=== PATIENT | female | born 1985 | race Caucasian/White ===

== ENCOUNTER 2016-08-18 08:54 | Outpatient (CLI) | payer OTHER, MEDICAID | END 2016-08-18 08:55 | disposition critical access hospital (66) | DX: M54.2 Cervicalgia (principal); R07.1 Chest pain on breathing; V43.52XA Car driver injured in collision with other type car in traffic accident, initial encounter; Y92.413 State road as the place of occurrence of the external cause | CPT/HCPCS: A0425; A0429 ==

== ENCOUNTER 2016-08-18 09:04 | Emergency (ER) | payer OTHER, MEDICAID ==
[2016-08-18] MEDS ORDERED: ACETAMINOPHEN 325 MG TABLET PO STA (09:09)
[2016-08-18] MEDS ORDERED: ACETAMINOPHEN 325 MG TABLET PO ONE (09:14)
== END 2016-08-18 11:28 | disposition home or self-care (01) ==
DX: S20.219A Contusion of unspecified front wall of thorax, initial encounter (principal); V53.5XXA Driver of pick-up truck or van injured in collision with car, pick-up truck or van in traffic accident, initial encounter; Y92.488 Other paved roadways as the place of occurrence of the external cause; J45.909 Unspecified asthma, uncomplicated; E03.9 Hypothyroidism, unspecified; Z87.42 Personal history of other diseases of the female genital tract; Z97.5 Presence of (intrauterine) contraceptive device
CPT/HCPCS: 71020; 72050; 99283; A9270

== ENCOUNTER 2016-08-21 18:28 | Emergency (ER) | payer OTHER, MEDICAID ==
[2016-08-21] MEDS ORDERED: MORPHINE 10 MG/ML VIAL ONE (21:00)
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
[2016-08-21] MEDS: MORPHINE 2 MG/ML SYRINGE IM STA (21:10)
[2016-08-21] MEDS: MORPHINE 2 MG/ML SYRINGE IVP STA (21:25)
[2016-08-21 21:59] VITALS: BP 102/74
--- NOTE | 2016-08-21 22:11 | CT Preliminary Report ---
Exam: CT Chest W/O IMPRESSION: 1. No displaced rib fractures. 2. No pneumothorax or effusion. No acute pulmonary process. 3. Possible contusion in the anterior chest wall. Correlate clinically. 4. See separate CT of the thoracic spinal cord. [facility] SITE ID: [id number]
--- NOTE | 2016-08-21 22:14 | CT Preliminary Report ---
Exam: CT Thoracic Spine W/O IMPRESSION: 1. No paraspinal hematoma. No fracture. [facility] SITE ID: [id number]
[2016-08-21] MEDS ORDERED: HYDROcod/ACET 5/325 Prepack 6 PO STA (22:23)
[2016-08-21] MEDS ORDERED: HYDROcod/ACET 5/325 Prepack 6 PO ONE (22:26)
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
--- NOTE | 2016-09-16 13:19 | ED Physician Documentation ---
ED Addendum - Addendum Addendum: 09/16/16 13:18 Note that the CAT scan of her chest demonstrates soft tissue contusion to the right anterior chest wall corroborated by area of tenderness as documented by Dr. Dickson on previous evaluation consistent with chest wall soft tissue injury.
== END 2016-08-21 22:32 | disposition home or self-care (01) ==
LOC: ED 18:28
DX: S20.211A Contusion of right front wall of thorax, initial encounter (principal); M54.6 Pain in thoracic spine; V49.40XA Driver injured in collision with unspecified motor vehicles in traffic accident, initial encounter; Y92.488 Other paved roadways as the place of occurrence of the external cause; J45.909 Unspecified asthma, uncomplicated; E03.9 Hypothyroidism, unspecified; Z87.42 Personal history of other diseases of the female genital tract
CPT/HCPCS: 71250; 72128; 96372; 99282; 99283

== ENCOUNTER 2017-01-03 16:15 | Outpatient (CLI) | payer OTHER, MEDICAID ==
--- NOTE | 2017-01-04 09:24 | XRAY Report ---
THREE-VIEW LEFT ANKLE: 01/03/2017 CLINICAL INDICATION: Pain. FINDINGS: AP, lateral, oblique views of the left ankle demonstrate mild degenerative changes, with s mall plantar and posterior calcaneal spurs. There is no evidence of acute fracture or dislocation. Lateral greater than medial soft tissue swelling is present. IMPRESSION: DEGENERATIVE CHANGES AND SOFT TISSUE SWELLING. NO EVIDENCE OF ACUTE FRACTURE. JOB #: [id number] EXT JOB #:[id number]
== END 2017-01-03 16:16 | disposition home or self-care (01) ==
LOC: DI 16:15
PROVIDERS: ATTEND Nurse Practitioner Family
DX: M19.072 Primary osteoarthritis, left ankle and foot (principal)

== ENCOUNTER 2017-06-15 14:39 | Outpatient (CLI) | payer MEDICAID ==
[2017-06-15 15:47] LABS: THYROID STIMULATING HORMONE 2.4 uIU/mL (0.34-5.60)
[2017-06-15 15:50] LABS: FREE T4 (FREE THYROXINE) 1.03 ng/dL (0.58-1.64)
== END 2017-06-15 14:40 | disposition home or self-care (01) ==
LOC: LAB 14:39
PROVIDERS: ATTEND Nurse Practitioner Family
DX: E03.9 Hypothyroidism, unspecified (principal)
CPT/HCPCS: 36415; 84439; 84443

== ENCOUNTER 2018-01-28 14:28 | Emergency (ER) | payer MEDICAID ==
[2018-01-28] MEDS ORDERED: IPRATROPIUM/ALBUTEROL 3 ML NEB INH STA (15:39)
[2018-01-28] MEDS ORDERED: DEXAMETHASONE 10 MG/ML VIAL PO STA (15:39)
--- NOTE | 2018-01-28 15:42 | ED Physician Documentation ---
PD HPI URI - Stated complaint Stated Complaint: Chest Congestion - Chief complaint Chief Complaint: Resp - History obtained from History obtained from: Patient - History of Present Illness Timing - onset: How many days ago (4) Timing duration: Days (4) Timing details: Gradual onset, Still present Associated symptoms: Fever, Chills, Sweats, Nasal congestion, Sore throat, Dry cough, Chest pain, Dyspnea Improves by: Rest, Medication, MDI/nebulizer Similar symptoms before: Diagnosis (asthma) Recently seen: Not recently seen - Additional information Additional information: 32-year-old female has developed chest pressure about 4 days ago. She has persistent pressure on her chest and this does not vary with her breathing. She has used her inhaler which does seem to help somewhat with the pain. She is developed a cough this morning she has developed low-grade fever she has body aches and pains for the last 4 days. Review of Systems Constitutional: reports: Fever, Chills, Myalgias, Fatigue, Sweats Eyes: denies: Decreased vision Ears: denies: Ear pain Nose: reports: Rhinorrhea / runny nose, Congestion Throat: reports: Sore throat Cardiac: reports: Chest pain / pressure. denies: Palpitations, Pedal edema, Calf pain Respiratory: reports: Cough. 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 : None HEENT: None Psych: Depression, Anxiety Musculoskeletal: None Derm: None - Past Surgical History Past Surgical History: Yes - Present Medications Home Medications: Ambulatory Orders Medication Instructions Recorded Confirmed Levothyroxine Sodium [Synthroid] 200 mcg PO DAILY 10/13/13 08/18/16 Albuterol 1 inh IH Q6HR PRN 08/18/16 08/18/16 Azithromycin [Zithromax] 250 mg PO DAILY #6 tablet 01/28/18 Bupropion HCl [Wellbutrin Xl] 300 mg DAILY 01/28/18 01/28/18 Escitalopram Oxalate [Lexapro] 30 mg DAILY 01/28/18 01/28/18 Fexofenadine HCl [Destiny Allergy] 180 mg DAILY 09/10/18 09/10/18 predniSONE [Prednisone] 40 mg PO DAILY #10 tablet 01/28/18 - Allergies Allergies/Adverse Reactions: Allergies Allergy/AdvReac Type Severity Reaction Status Date / Time No Known Drug Allergies Allergy Verified 08/18/16 09:09 - Social History Does the pt smoke?: No Smoking Status: Never smoker Does the pt drink ETOH?: No Does the pt have substance abuse?: No - Immunizations Immunizations are current?: Yes PD ED PE NORMAL - Vitals Vital signs reviewed: Yes (hypertensive diastolic ) - General General: Alert and oriented X 3, No acute distress, Well developed/nourished - HEENT HEENT: Atraumatic, PERRL, EOMI, Other (The right TM is inflamed with distortion of the landmarks. The left is less involved. The pharynx is with 1+ cryptic tonsils with exudate on the right. ) - Neck Neck: Supple, no meningeal sign, No bony TTP - Cardiac Cardiac: RRR, No murmur - Respiratory Respiratory: No respiratory distress, Other (rhoncherous breath sounds bilaterally ) - Abdomen Abdomen: Soft, Non tender - Back Back: No CVA TTP, No spinal TTP - Derm Derm: Normal color, Warm and dry, No rash - Extremities Extremities: No deformity, No edema - Neuro Neuro: Alert and oriented X 3, nuclear medicine specialist 2-12 intact, No motor deficit, No sensory deficit, Normal speech Eye Opening: Spontaneous Motor: Obeys Commands Verbal: Oriented GCS Score: 15 - Psych Psych: Normal mood, Normal affect Results - Vitals Vitals: Vital Signs - 24 hr 01/28/18 01/28/18 01/28/18 14:32 15:53 16:23 Temperature 36.6 C Heart Rate 88 74 86 Respiratory 20 18 18 Rate Blood Pressure 114/96 H 124/74 O2 Saturation 97 100 Oxygen O2 Source Room air - EKG (time done) 1437 Rate: Rate (enter#) (88) Rhythm: NSR Ischemia: Normal ST segments Compare to prior EKG: Old EKG unavailable Computer interpretation: Agree with computer - Rads (name of study) 2 veiw chest Radiology: Prelim report reviewed PD MEDICAL DECISION MAKING - ED course Complexity details: reviewed old records, reviewed results, re-evaluated patient , considered differential, d/w patient ED course: 32-year-old female with history of asthma has developed a cough congestion and has anterior chest pain. She does have otitis on exam she has some rhonchorous breath sounds, no evidence of infiltrate on the chest x-ray. She is administered dexamethasone 10 mg orally and a DuoNeb treatment and we will place her on some antibiotic. She has improvement with the duoneb. - Sepsis Event Vital Signs: Vital Signs - 24 hr 01/28/18 01/28/18 01/28/18 14:32 15:53 16:23 Temperature 36.6 C Heart Rate 88 74 86 Respiratory 20 18 18 Rate Blood Pressure 114/96 H 124/74 O2 Saturation 97 100 Oxygen O2 Source Room air Departure - Departure Disposition: Home, Self Care Clinical Impression: Otitis media Qualifiers: Otitis media type: suppurative Chronicity: acute Laterality: right Recurrence: not specified as recurrent Spontaneous tympanic membrane rupture: without spontaneous rupture Qualified Code(s): H66.001 - Acute suppurative otitis media without spontaneous rupture of ear drum, right ear Asthma Qualifiers: Asthma severity: mild Asthma persistence: intermittent Asthma complication type : with acute exacerbation Qualified Code(s): J45.21 - Mild intermittent asthma with (acute) exacerbation Condition: Stable Instructions: ED Reactive Airway Disease, ED Otitis Media Acute Adult Follow-Up: Chasity Schaffer ARNP [Primary Care Provider] - Prescriptions: Azithromycin [Zithromax] 250 mg PO DAILY #6 tablet predniSONE [Prednisone] 40 mg PO DAILY #10 tablet Discharge Date/Time: 01/28/18 16:24
[2018-01-28] MEDS ORDERED: CHERRY SYRUP 10 ML UDC PO ONE (15:55)
--- NOTE | 2018-01-28 16:22 | XRAY Report ---
Reason: chest congestion x 1 week Procedure Date: 01/28/2018 Accession Number: [id number] / [id number] Procedure: XR - Chest 2 View X-Ray CPT Code: 44303 FULL RESULT: EXAM: CHEST RADIOGRAPHY. EXAM DATE: 01/28/2018 03:29 PM. CLINICAL HISTORY: History of asthma. Chest congestion, productive cough x1 week. COMPARISON: Chest 2 view PA/lateral 08/18/2016. TECHNIQUE: 2 views. FINDINGS: Lungs/Pleura: No focal opacities evident. No pleural effusion. No pneumothorax. Normal volumes. Mediastinum: Heart and mediastinal contours are unremarkable. Other: None. IMPRESSION: Normal 2-view chest radiography. [facility]
[2018-01-28 16:24] VITALS: BP 124/74
== END 2018-01-28 16:24 | disposition home or self-care (01) ==
LOC: ED 14:28
DX: H66.001 Acute suppurative otitis media without spontaneous rupture of ear drum, right ear (principal); J45.21 Mild intermittent asthma with (acute) exacerbation; E03.9 Hypothyroidism, unspecified
CPT/HCPCS: 71046; 93005; 94640; 94664; 99283; A9270

== ENCOUNTER 2018-03-15 09:20 | Emergency (ER) | payer MEDICAID ==
[2018-03-15 09:48] LABS: BILIRUBIN,URINE NEGATIVE (NEGATIVE); GLUCOSE, URINE (UA) NEGATIVE (NEGATIVE); KETONES,URINE (UA) NEGATIVE (NEGATIVE); LEUKOCYTE ESTERASE, URINE NEGATIVE (NEGATIVE); NITRITE,URINE NEGATIVE (NEGATIVE); OCCULT BLOOD,URINE TRACE-LYSE (NEGATIVE); PH,URINE 7.5 PH (5.0-7.5); PROTEIN,URINE NEGATIVE (NEGATIVE); UROBILINOGEN,URINE 0.2 (NORMAL) E.U./dL (NORMAL)
[2018-03-15 09:49] LABS: CLARITY,URINE CLEAR (CLEAR)
--- NOTE | 2018-03-15 09:51 | ED Physician Documentation ---
PD HPI FEMALE - Stated complaint Stated Complaint: SPOTTING/5WKS - Chief complaint Chief Complaint: General - History obtained from History obtained from: Patient - History of Present Illness Timing - onset: Today Associated symptoms: Vaginal bleeding Contributing factors: (5 weeks gestation.) Similar symptoms before: Has not had sx before - Additional information Additional information: The patient is a 32-year-old female, currently at 5 weeks gestation, who presents with right sided cramping pain and vaginal spotting that started this morning. She reports nausea without vomiting. She denies fever or dysuria. She denies history of similar symptoms in the past. Review of Systems Constitutional: denies: Fever Nose: denies: Congestion Cardiac: denies: Chest pain / pressure Respiratory: denies: Dyspnea, Cough GI: reports: Nausea. denies: Abdominal Pain, Vomiting : reports: LMP (5 weeks ago.), Vaginal bleeding (spotting). 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 : None HEENT: None Psych: Depression, Anxiety Musculoskeletal: None Derm: None - Past Surgical History Past Surgical History: Yes - Present Medications Home Medications: Ambulatory Orders Medication Instructions Recorded Confirmed Bupropion HCl [Wellbutrin Xl] 300 mg DAILY 01/28/18 01/28/18 Escitalopram Oxalate [Lexapro] 30 mg DAILY 01/28/18 01/28/18 Levothyroxine Sodium [Synthroid] 200 mcg PO 03/15/18 - Allergies Allergies/Adverse Reactions: Allergies Allergy/AdvReac Type Severity Reaction Status Date / Time No Known Drug Allergies Allergy Verified 03/15/18 09:52 - Social History Does the pt smoke?: No Smoking Status: Never smoker Does the pt drink ETOH?: No Does the pt have substance abuse?: No - Immunizations Immunizations are current?: Yes - POLST Patient has POLST: No PD ED PE NORMAL - Vitals Vital signs reviewed: Yes (normal) - General General: Alert and oriented X 3, Well developed/nourished, Other (overweight) - HEENT HEENT: Atraumatic, Pharynx benign - Neck Neck: No adenopathy, No JVD - Cardiac Cardiac: RRR, No murmur - Respiratory Respiratory: No respiratory distress, Clear bilaterally - Abdomen Abdomen: Normal bowel sounds, Soft, Non tender - Back Back: No CVA TTP - Derm Derm: No rash - Extremities Extremities: No edema, No calf tenderness / cord - Neuro Neuro: Alert and oriented X 3, No motor deficit, Normal speech Results - Vitals Vitals: Vital Signs - 24 hr 03/15/18 09:28 Temperature 36.4 C L Heart Rate 77 Respiratory 20 Rate Blood Pressure 119/77 O2 Saturation 99 Oxygen O2 Source Room air - Labs Labs: Laboratory Tests 03/15/18 03/15/18 09:40 09:53 HCG, Quant < 0.60 Urine Color YELLOW Urine Clarity CLEAR Urine pH 7.5 Ur Specific [place] 1.010 Urine Protein NEGATIVE Urine Glucose (UA) NEGATIVE Urine Ketones NEGATIVE Urine Occult Blood TRACE-LYSE Urine Nitrite NEGATIVE Urine Bilirubin NEGATIVE Urine Urobilinogen 0.2 (NORMAL) Ur Leukocyte Esterase NEGATIVE Ur Microscopic Review NOT INDICATED Urine Culture Comments NOT INDICATED PD MEDICAL DECISION MAKING - ED course Complexity details: reviewed results, re-evaluated patient, considered differential, d/w patient ED course: The patient's presentation is most consistent with menstrual bleeding. A serum hCG is negative, so this is unlikely to be a miscarriage or ectopic . Pelvic ultrasound is not clinically indicated at this time. I discussed with the patient the diagnosis, outpatient follow-up, as well as potentially worrisome signs or symptoms that should prompt reevaluation in the emergency department. Departure - Departure Disposition: 01 Home, Self Care Clinical Impression: Menstrual cramps Condition: Stable Instructions: ED Cramping Menstrual Follow-Up: Chasity Schaffer ARNP [Primary Care Provider] - Comments: Drink plenty of fluids. You can use Tylenol every 4-6 hours if needed for cramping pain. You could also use ibuprofen if needed. Follow-up with your primary physician or return to the emergency department if you develop increasing pain, increasing bleeding, or otherwise worsening symptoms.
[2018-03-15 10:53] VITALS: BP 107/73
== END 2018-03-15 10:56 | disposition home or self-care (01) ==
LOC: ED 09:20
DX: O26.891 Other specified pregnancy related conditions, first trimester (principal); Z3A.01 Less than 8 weeks gestation of pregnancy; R25.2 Cramp and spasm; E03.9 Hypothyroidism, unspecified
CPT/HCPCS: 81001; 81003; 81025; 84702; 87086; 87491; 87591; 99282; 99283

== ENCOUNTER 2018-05-24 08:00 | Outpatient (CLI) | payer MEDICAID | END 2018-05-24 23:59 | disposition home or self-care (01) | LOC: LAB.R 08:00 | PROVIDERS: ATTEND Physician Assistant Medical | DX: J02.9 Acute pharyngitis, unspecified (principal) | CPT/HCPCS: 87070; 87077 ==

== ENCOUNTER 2018-07-05 09:03 | Outpatient (CLI) | payer MEDICAID ==
[2018-07-05 10:52] LABS: BASOPHILS # (AUTO) 0.1 10^3/uL (0.0-0.1); BASOPHILS % (AUTO) 1.8 %; EOSINOPHILS # (AUTO) 0.2 10^3/uL (0.0-0.7); EOSINOPHILS % (AUTO) 2.7 %; HGB - HEMOGLOBIN 14.2 g/dL (12.0-16.0); LYMPHOCYTES # (AUTO) 1.5 10^3/uL (1.5-3.5); MEAN CORPUSCULAR HEMOGLOBIN 28.9 pg (27.0-31.0); MEAN CORPUSCULAR HGB CONC 36.1 g/dL (32.0-36.0); MEAN CORPUSCULAR VOLUME 80.1 fL (81.0-99.0); MEAN PLATELET VOLUME 8.7 fL (7.9-10.8); MONOCYTES # (AUTO) 0.4 10^3/uL (0.0-1.0); MONOCYTES % (AUTO) 6.8 %; NEUTROPHILS # (AUTO) 3.5 10^3/uL (1.5-6.6); NEUTROPHILS % (AUTO) 61.7 %; PLT - PLATELET COUNT 235 10^3/uL (130-450); RED BLOOD COUNT 4.92 10^6/uL (4.20-5.40); RED CELL DISTRIBUTION WIDTH 13.7 % (12.0-15.0); WHITE BLOOD COUNT 5.7 x10^3/uL (4.8-10.8)
[2018-07-05 11:16] LABS: RHEUMATOID FACTOR NEGATIVE (Negative)
[2018-07-05 11:27] LABS: ALBUMIN/GLOBULIN RATIO 1.2 (1.0-2.2); ALKALINE PHOSPHATASE 51 IU/L (42-121); ALT ALANINE AMINOTRANSFERASE 57 IU/L (10-60); AST ASPARTATE AMINOTRANSFERASE 35 IU/L (10-42); BILIRUBIN,TOTAL 0.7 mg/dL (0.2-1.0); BUN - BLOOD UREA NITROGEN 17 mg/dL (6-20); CARBON DIOXIDE - CO2 27 mmol/L (21-32); CHLORIDE 102 mmol/L (101-111); CREATININE 0.7 mg/dL (0.4-1.0); GFR - MDRD 96 (>89); GLUCOSE 91 mg/dL (70-100); SODIUM 138 mmol/L (135-145); TOTAL PROTEIN 7.3 g/dL (6.7-8.2)
[2018-07-05 11:35] LABS: CRP - C-REACTIVE PROTEIN < 1.0 mg/dL (0-1.0)
== END 2018-07-05 09:04 | disposition home or self-care (01) ==
LOC: LAB.F 09:03
PROVIDERS: ATTEND Nurse Practitioner Family
DX: M25.50 Pain in unspecified joint (principal)
CPT/HCPCS: 36415; 80053; 85025; 85651; 86038; 86140; 86430

== ENCOUNTER 2018-08-23 07:46 | Outpatient (CLI) | payer MEDICAID ==
[2018-08-23 08:21] LABS: CHOL/HDL RATIO 5.1 (<4.4); CHOLESTEROL 203 mg/dL; HDL CHOLESTEROL 40 mg/dL; LDL CHOLESTEROL,CALCULATED 144 mg/dL; LDL/HDL RATIO 3.6 (<4.4); VLDL CHOLESTEROL 19 mg/dL
[2018-08-23 08:36] LABS: HB2 TOTAL 15.3 g/dL; HEMOGLOBIN A1C 0.51 g/dL; HEMOGLOBIN A1C % 5.2 % (4.6-6.2)
[2018-08-23 09:15] LABS: THYROID STIMULATING HORMONE 20.99 uIU/mL (0.34-5.60)
[2018-08-23 09:17] LABS: FREE T4 (FREE THYROXINE) 0.61 ng/dL (0.58-1.64)
== END 2018-08-23 07:47 | disposition home or self-care (01) ==
LOC: LAB 07:46
PROVIDERS: ATTEND Obstetrics & Gynecology
DX: E03.9 Hypothyroidism, unspecified (principal); Z13.220 Encounter for screening for lipoid disorders; Z13.1 Encounter for screening for diabetes mellitus; Z11.51 Encounter for screening for human papillomavirus (HPV)
CPT/HCPCS: 80061; 83036; 83721; 84439; 84443

== ENCOUNTER 2018-08-30 22:04 | Outpatient (CLI) | payer MEDICAID ==
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
== END 2018-08-30 22:05 | disposition home or self-care (01) ==
LOC: DI 22:04
PROVIDERS: ATTEND Obstetrics & Gynecology
DX: N91.1 Secondary amenorrhea (principal)
CPT/HCPCS: 76830; 76856

== ENCOUNTER 2018-10-15 09:40 | Outpatient (CLI) | payer MEDICAID ==
[2018-10-15 10:51] LABS: CHOL/HDL RATIO 5.4 (<4.4); CHOLESTEROL 188 mg/dL; HDL CHOLESTEROL 35 mg/dL; LDL CHOLESTEROL,CALCULATED 128 mg/dL; LDL/HDL RATIO 3.7 (<4.4); VLDL CHOLESTEROL 25 mg/dL
== END 2018-10-15 09:41 | disposition home or self-care (01) ==
LOC: LAB 09:40
PROVIDERS: ATTEND Nurse Practitioner Family
DX: E78.5 Hyperlipidemia, unspecified (principal); E06.3 Autoimmune thyroiditis; Z13.71 Encounter for nonprocreative screening for genetic disease carrier status; Z11.59 Encounter for screening for other viral diseases
CPT/HCPCS: 36415; 80061; 81220; 81243; 81329; 81599; 83721; 84443; 86762; 86787

== ENCOUNTER 2018-10-23 09:13 | Outpatient (CLI) | payer MEDICAID | END 2018-10-23 09:14 | disposition home or self-care (01) | LOC: NS 09:13 | PROVIDERS: ATTEND Obstetrics & Gynecology | DX: E66.9 Obesity, unspecified (principal); Z71.3 Dietary counseling and surveillance; Z68.41 Body mass index [BMI] 40.0-44.9, adult | CPT/HCPCS: 97802 ==

== ENCOUNTER 2019-01-10 07:46 | Outpatient (CLI) | payer MEDICAID ==
[2019-01-10 10:11] LABS: PROLACTIN 8.98 ng/mL
[2019-01-10 10:34] LABS: FOLLICLE STIMULATING HORMONE 6.4 mIU/mL
[2019-01-10 10:35] LABS: LUTEINIZING HORMONE 10.17 mIU/mL
== END 2019-01-10 07:47 | disposition home or self-care (01) ==
LOC: LAB 07:46
PROVIDERS: ATTEND Obstetrics & Gynecology
DX: N91.1 Secondary amenorrhea (principal)
CPT/HCPCS: 36415; 81599; 82627; 83001; 83002; 83498; 84146; 84270; 84402; 84403

== ENCOUNTER 2019-02-11 12:52 | Emergency (ER) | payer MEDICAID ==
[2019-02-11] MEDS ORDERED: BUPIVACAINE 0.5%-EPI 1:200000 PF 10 ML VIAL SUBQ STA (13:33)
--- NOTE | 2019-02-11 13:35 | ED Physician Documentation ---
PD HPI LOWER EXT INJURY - Stated complaint Stated Complaint: ANKLE PX - Chief complaint Chief Complaint: Ext Problem - History obtained from History obtained from: Patient - History of Present Illness PD HPI LOW EXT INJURY LOCATION: Right (Without specific injury she developed medial right foot pain today that has per been progressive and now she is not able to walk. No history of similar issues. No fever. 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 : None HEENT: None Psych: Depression, Anxiety Musculoskeletal: None Derm: None - Past Surgical History Past Surgical History: Yes - Present Medications Home Medications: Ambulatory Orders Medication Instructions Recorded Confirmed Bupropion HCl [Wellbutrin Xl] 300 mg DAILY 01/28/18 01/28/18 Escitalopram Oxalate [Lexapro] 30 mg DAILY 01/28/18 01/28/18 Levothyroxine Sodium [Synthroid] 200 mcg PO 03/15/18 Meloxicam [Mobic] 7.5 mg PO BID PRN #20 tablet 02/11/19 - Allergies Allergies/Adverse Reactions: Allergies Allergy/AdvReac Type Severity Reaction Status Date / Time No Known Drug Allergies Allergy Verified 02/11/19 13:00 - Social History Does the pt smoke?: No Smoking Status: Never smoker Does the pt drink ETOH?: No Does the pt have substance abuse?: No - Immunizations Immunizations are current?: Yes - POLST Patient has POLST: No PD ED PE NORMAL - Vitals Vital signs reviewed: Yes - General General: Alert and oriented X 3, No acute distress - Extremities Extremities: Other (She is focally tender over the medial proximal foot, specifically the tenderness matches the distribution of the posterior tibial t endon. She is not too tender over the plantar fascia over the insertion of that on the calcaneus. She has severe pain with palpation to the posterior tibial tendon and with eversion of the foot. No warmth or redness.) - Neuro Neuro: Alert and oriented X 3, Normal speech Results - Vitals Vitals: Vital Signs - 24 hr 02/11/19 12:59 Temperature 36.5 C Heart Rate 78 Respiratory 18 Rate Blood Pressure 118/69 O2 Saturation 98 Oxygen O2 Source Room air - Rads (name of study) R foot 3v Radiology: EMP read contemporaneously (normal) PD MEDICAL DECISION MAKING - ED course ED course: 33-year-old woman with clinical right foot tendinitis. X-rays negative. She had excellent pain relief with 5 mL of 0.5% Marcaine with epinephrine injected into the local area. Departure - Departure Disposition: 01 Home, Self Care Clinical Impression: Tendinitis of right foot Condition: Good Record reviewed to determine appropriate education?: Yes Instructions: Tendonitis and Tenosynovitis Prescriptions: Meloxicam [Mobic] 7.5 mg PO BID PRN #20 tablet PRN Reason: Pain Comments: Return for new or worsening symptoms. Follow-up with your doctor in a week if not better. You can wear the boot as needed for comfort but do not need to wear it in bed or while bathing etc.
--- NOTE | 2019-02-11 14:08 | XRAY Report ---
Reason: foot pain Procedure Date: 02/11/2019 Accession Number: [id number] / [id number] Procedure: XR - Foot 3 View RT CPT Code: FULL RESULT: EXAM: RIGHT FOOT RADIOGRAPHY EXAM DATE: 02/11/2019 01:51 PM. CLINICAL HISTORY: Foot pain. COMPARISON: None. TECHNIQUE: 3 views. FINDINGS: Bones: No acute fracture. No suspicious osseous lesion. Small corticated body adjacent to the tip of the medial malleolus, likely sequela of old trauma. Plantar and posterior calcaneal spurs. Joints: No significant joint space narrowing. No dislocation. Other: None. IMPRESSION: No acute osseous abnormality. RADIA
[2019-02-11 14:16] VITALS: BP 126/80
== END 2019-02-11 14:23 | disposition home or self-care (01) ==
LOC: ED 12:52
DX: M77.51 Other enthesopathy of right foot and ankle (principal)
CPT/HCPCS: 99283

== ENCOUNTER 2019-05-10 21:42 | Emergency (ER) | payer MEDICAID ==
[2019-05-10] MEDS ORDERED: SODIUM CHLORIDE 0.9% 1,000 ML IV STA (22:01)
[2019-05-10] MEDS ORDERED: ONDANSETRON 4 MG/2 ML VIAL IVP STA (22:01)
[2019-05-10 22:23] LABS: BASOPHILS % (AUTO) 0.3 %; EOSINOPHILS % (AUTO) 0.5 %; HGB - HEMOGLOBIN 14.2 g/dL (12.0-16.0); LYMPHOCYTES # (AUTO) 0.8 10^3/uL (1.5-3.5); MEAN CORPUSCULAR HGB CONC 34.3 g/dL (32.0-36.0); MEAN CORPUSCULAR VOLUME 81.5 fL (81.0-99.0); MEAN PLATELET VOLUME 10.4 fL (7.9-10.8); MONOCYTES # (AUTO) 0.4 10^3/uL (0.0-1.0); MONOCYTES % (AUTO) 5.3 %; NEUTROPHILS # (AUTO) 5.4 10^3/uL (1.5-6.6); NEUTROPHILS % (AUTO) 81.4 %; PLT - PLATELET COUNT 250 10^3/uL (130-450); RED BLOOD COUNT 5.08 10^6/uL (4.20-5.40); RED CELL DISTRIBUTION WIDTH 12.7 % (12.0-15.0); WHITE BLOOD COUNT 6.6 x10^3/uL (4.8-10.8)
[2019-05-10] MEDS ORDERED: ACETAMINOPHEN 1,000 MG/100 ML 100 ML IV STA (22:33)
[2019-05-10 22:35] LABS: ALBUMIN/GLOBULIN RATIO 1.3 (1.0-2.2); BILIRUBIN,TOTAL 0.9 mg/dL (0.2-1.0); CALCIUM 8.3 mg/dL (8.5-10.3); CREATININE 0.8 mg/dL (0.4-1.0)
[2019-05-10] MEDS ORDERED: METOCLOPRAMIDE 10 MG/2 ML VIAL IVP STA (22:51)
--- NOTE | 2019-05-10 22:52 | ED Physician Documentation ---
History of Present Illness - Stated complaint Stated Complaint: N/V - Chief complaint Chief Complaint: Abd Pain - Additonal information Additional information: This is a 34-year-old female with history of anxiety and depression who presents with nausea and vomiting. Patient states that her symptoms began this morning with several episodes of vomiting, this has Persisted throughout the day, she is unable to hold down much of substance. She has some generalized crampy and migratory abdominal discomfort which is currently mild to moderate in severity. She denies any dysuria or flank pain. No fever, no diarrhea. She had a normal bowel movement this morning. 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 : None HEENT: None Psych: Depression, Anxiety Musculoskeletal: None Derm: None - Past Surgical History Past Surgical History: Yes - Present Medications Home Medications: Ambulatory Orders Medication Instructions Recorded Confirmed Levothyroxine Sodium [Synthroid] 200 mcg PO DAILY 03/15/18 05/10/19 Alprazolam [Xanax] 1 mg PO DAILY PRN 05/10/19 05/10/19 Citalopram Hydrobromide 10 mg PO DAILY 05/10/19 05/10/19 [Citalopram HBr] Fexofenadine HCl [Destiny Allergy] 180 mg PO DAILY PRN 05/10/19 05/10/19 Fluticasone [Flonase] 1 spray NS DAILY PRN 05/10/19 05/10/19 Metoclopramide [Reglan] 10 mg PO Q8H PRN #7 tablet 05/10/19 Sumatriptan Succinate [Imitrex] 100 mg PO DAILY PRN 05/10/19 05/10/19 - Allergies Allergies/Adverse Reactions: Allergies Allergy/AdvReac Type Severity Reaction Status Date / Time No Known Drug Allergies Allergy Verified 05/10/19 21:49 - Social History Does the pt smoke?: No Smoking Status: Never smoker Does the pt drink ETOH?: No Does the pt have substance abuse?: No - Immunizations Immunizations are current?: Yes - POLST Patient has POLST: No PD ED PE NORMAL - Vitals Vital signs reviewed: Yes - General General: Alert and oriented X 3, No acute distress - HEENT HEENT: PERRL - Neck Neck: Supple, no meningeal sign - Cardiac Cardiac: RRR, No murmur - Respiratory Respiratory: Clear bilaterally - Abdomen Abdomen: Soft, Other (Abdomen is rotund, there is no tenderness to deep palpation in all 4 quadrants) - Derm Derm: Warm and dry - Extremities Extremities: No deformity - Neuro Neuro: Alert and oriented X 3 - Psych Psych: Normal mood, Normal affect Results - Vitals Vitals: Vital Signs - 24 hr 05/10/19 05/10/19 05/10/19 21:46 22:58 23:18 Temperature 36.8 C Heart Rate 100 80 76 Respiratory 18 16 16 Rate Blood Pressure 128/77 131/75 H 133/80 H O2 Saturation 97 95 97 05/10/19 23:52 Temperature 37.2 C Heart Rate 73 Respiratory 16 Rate Blood Pressure 145/92 H O2 Saturation 97 Oxygen O2 Source Room air - Labs Labs: Laboratory Tests 05/10/19 05/10/19 05/10/19 22:14 22:14 23:25 WBC 6.6 RBC 5.08 Hgb 14.2 Hct 41.4 MCV 81.5 MCH 28.0 MCHC 34.3 RDW 12.7 Plt Count 250 MPV 10.4 Neut # (Auto) 5.4 Lymph # (Auto) 0.8 L Forest # (Auto) 0.4 Eos # (Auto) 0.0 Baso # (Auto) 0.0 Absolute Nucleated RBC 0.00 Nucleated RBC % 0.0 Sodium 138 Potassium 3.2 L Chloride 104 Carbon Dioxide 23 Anion Gap 11.0 BUN 13 Creatinine 0.8 Estimated GFR (MDRD) 82 L Glucose 112 H Calcium 8.3 L Total Bilirubin 0.9 AST 41 ALT 55 Alkaline Phosphatase 59 Total Protein 7.0 Albumin 4.0 Globulin 3.0 Albumin/Globulin Ratio 1.3 Lipase 32 Urine Color YELLOW Urine Clarity CLEAR Urine pH 6.0 Ur Specific Addison 1.020 Urine Protein NEGATIVE Urine Glucose (UA) NEGATIVE Urine Ketones 15 H Urine Occult Blood TRACE-INTA Urine Nitrite NEGATIVE Urine Bilirubin NEGATIVE Urine Urobilinogen 0.2 (NORMAL) Ur Leukocyte Esterase NEGATIVE Ur Microscopic Review NOT INDICATED Urine Culture Comments NOT INDICATED Urine HCG, Qual 05/10/19 23:25 WBC RBC Hgb Hct MCV MCH MCHC RDW Plt Count MPV Neut # (Auto) Lymph # (Auto) Forest # (Auto) Eos # (Auto) Baso # (Auto) Absolute Nucleated RBC Nucleated RBC % Sodium Potassium Chloride Carbon Dioxide Anion Gap BUN Creatinine Estimated GFR (MDRD) Glucose Calcium Total Bilirubin AST ALT Alkaline Phosphatase Total Protein Albumin Globulin Albumin/Globulin Ratio Lipase Urine Color Urine Clarity Urine pH Ur Specific Addison 1.020 Urine Protein Urine Glucose (UA) Urine Ketones Urine Occult Blood Urine Nitrite Urine Bilirubin Urine Urobilinogen Ur Leukocyte Esterase Ur Microscopic Review Urine Culture Comments Urine HCG, Qual NEGATIVE PD MEDICAL DECISION MAKING - ED course Complexity details: considered differential (Gastroenteritis, UTI, pancreatitis, enteritis, biliary colic, pyelonephritis) ED course: On examination patient is nontoxic-appearing, and her vital signs are unremarkable on my examination, she is afebrile. She has a very benign abdomen with no tenderness to deep outpatient all 4 quadrants. Labs are drawn and kartik wilder was given antiemetics. Her blood counts are unremarkable with no leukocytosis, her abdominal panel does show a slight hypokalemia, but is otherwise unremarkable. Her lipase is normal. Her urine is negative for infection and her hCG is also negative. After fluids and antiemetics I reevaluated the patient, she is feeling much better and she is eager to go home. Her abdomen remains benign on my repeat examination, and her vital signs are within normal limits. She has no pelvic symptoms, no lower abdominal pain. I discussed with patient that if she has new or worsening abdominal pain, pa rticularly pain that settles in one area of her abdomen such as the right lower right upper quadrant, or any other concerning symptoms she should return to the emergency department for recheck in the next 24 hours. It is possible that this is an early gastroenteritis but the fact that she has not had diarrhea makes this diagnosis more unclear. I discussed strict return precautions and PCP follow-up and patient was discharged home in accordance with her wishes. Departure - Departure Disposition: Home, Self Care Clinical Impression: Vomiting Qualifiers: Vomiting type: unspecified Vomiting Intractability: non-intractable Nausea presence: with nausea Qualified Code(s): R11.2 - Nausea with vomiting, unspecified Condition: Good Follow-Up: Esdras Horowitz MD [Primary Care Provider] - As Needed (With any persistent symptoms) Prescriptions: Metoclopramide [Reglan] 10 mg PO Q8H PRN #7 tablet PRN Reason: Nausea / Vomiting Comments: You were seen today for vomiting and abdominal discomfort. Your labs are reassuring at this time, your potassium is a bit low, please eat potassium rich foods over the next several days. If you are developing worsening or not improving abdominal pain, or other concerning symptoms, particularly pain that settles to one area of the abdomen such as the right upper or right lower abdomen, return to the emergency department for recheck in the next day. Discharge Date/Time: 05/11/19 00:07
[2019-05-10] MEDS ORDERED: LACTATED RINGERS 1,000 ML IV STA (22:53)
[2019-05-10 23:33] LABS: BILIRUBIN,URINE NEGATIVE (NEGATIVE); GLUCOSE, URINE (UA) NEGATIVE (NEGATIVE); KETONES,URINE (UA) 15 mg/dL (NEGATIVE); LEUKOCYTE ESTERASE, URINE NEGATIVE (NEGATIVE); NITRITE,URINE NEGATIVE (NEGATIVE); OCCULT BLOOD,URINE TRACE-INTA (NEGATIVE); PROTEIN,URINE NEGATIVE (NEGATIVE); UROBILINOGEN,URINE 0.2 (NORMAL) E.U./dL (NORMAL)
[2019-05-10 23:35] LABS: CLARITY,URINE CLEAR (CLEAR); HCG UR QUAL NEGATIVE
[2019-05-10 23:53] VITALS: BP 145/92
== END 2019-05-11 00:07 | disposition home or self-care (01) ==
LOC: ED 21:42
DX: R11.2 Nausea with vomiting, unspecified (principal); E87.6 Hypokalemia
CPT/HCPCS: 36415; 80053; 81003; 81025; 83690; 85025; 96361; 96365; 96375; 99284; J0131; J2765; J7120; 81001; 87086

== ENCOUNTER 2019-07-18 10:55 | Outpatient (CLI) | payer MEDICAID | END 2019-07-18 23:59 | disposition home or self-care (01) | LOC: LAB.R 10:55 | PROVIDERS: ATTEND Nurse Practitioner | DX: J02.9 Acute pharyngitis, unspecified (principal) | CPT/HCPCS: 87070 ==

== ENCOUNTER 2019-12-05 16:13 | Emergency (ER) | payer MEDICAID ==
[2019-12-05] MEDS ORDERED: LIDOCAINE TOPICAL 4% 50 ML BOTTLE MM STA (18:37)
[2019-12-05] MEDS ORDERED: BUTALB/ACETAM/CAFF 50/325/40MG TABLET PO STA (18:37)
--- NOTE | 2019-12-05 19:56 | ED Physician Documentation ---
PD HPI HEADACHE - Stated complaint Stated Complaint: HEADACHE - Chief complaint Chief Complaint: General - History obtained from History obtained from: Patient - History of Present Illness Timing - onset: How many days ago (3) Timing - onset during: Rest Timing - duration: Days (3) Timing - details: Gradual onset Pain level max: 9 Pain level now: 9 Location: Global Quality: Throbbing, Aching, Other (She states that this headache was "very gradual in onset") Associated symptoms: Nausea, Other (Photophobia). No: Fever, Stiff neck, Vomiting, Weakness, Numbness, Syncope Improved by: Rest, Dark room Worsened by: Light, Noise Similar symptoms before: Diagnosis (Migraine headaches) Recently seen: Clinic (Received an injection of Toradol in the clinic yesterday) - Additional information Additional information: Has not taken anything for the headache today Review of Systems Constitutional: denies: Fever, Chills Cardiac: denies: Chest pain / pressure Respiratory: denies: Cough GI: denies: Vomiting, Diarrhea Skin: denies: Rash Musculoskeletal: denies: Neck pain, Back pain Neurologic: denies: Focal weakness, Numbness, Confused, Altered mental status, Head injury, LOC PD PAST MEDICAL HISTORY - Past Medical History Cardiovascular: None Respiratory: Asthma, Other Neuro: Headaches, Migraines Endocrine/Autoimmune: HyPOthyroidism GI: 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 HEENT: None Psych: Depression, Anxiety Musculoskeletal: None Derm: None - Past Surgical History Past Surgical History: Yes - Present Medications Home Medications: Ambulatory Orders Medication Instructions Recorded Confirmed Levothyroxine Sodium [Synthroid] 200 mcg PO DAILY 03/15/18 05/10/19 Alprazolam [Xanax] 1 mg PO DAILY PRN 05/10/19 05/10/19 Citalopram Hydrobromide 10 mg PO DAILY 05/10/19 05/10/19 [Citalopram HBr] Fexofenadine HCl [Destiny Allergy] 180 mg PO DAILY PRN 05/10/19 05/10/19 Fluticasone [Flonase] 1 spray NS DAILY PRN 05/10/19 05/10/19 Metoclopramide [Reglan] 10 mg PO Q8H PRN #7 tablet 05/10/19 Sumatriptan Succinate [Imitrex] 100 mg PO DAILY PRN 05/10/19 05/10/19 Butalb/Acetaminophen/Caffeine 1 cap PO Q6H PRN #10 capsule 12/05/19 [Fioricet 50-300-40 mg Capsule] Sumatriptan [Imitrex] 20 mg NS DAILY PRN #5 spray 12/05/19 - Allergies Allergies/Adverse Reactions: Allergies Allergy/AdvReac Type Severity Reaction Status Date / Time No Known Drug Allergies Allergy Verified 12/05/19 16:19 - Social History Does the pt smoke?: No Smoking Status: Never smoker Does the pt drink ETOH?: No Does the pt have substance abuse?: No - Immunizations Immunizations are current?: Yes - POLST Patient has POLST: No PD ED PE NORMAL - Vitals Vital signs reviewed: Yes - General General: Alert and oriented X 3, No acute distress, Well developed/nourished - HEENT HEENT: Atraumatic, PERRL, Moist mucous membranes - Neck Neck: Supple, no meningeal sign - Cardiac Cardiac: RRR, Strong equal pulses - Respiratory Respiratory: No respiratory distress, Clear bilaterally - Abdomen Abdomen: Soft, Non tender, Non distended - Derm Derm: Warm and dry - Extremities Extremities: No edema, No calf tenderness / cord - Neuro Neuro: Alert and oriented X 3, foot orthopedist 2-12 intact, No motor deficit, No sensory deficit, Normal speech Eye Opening: Spontaneous Motor: Obeys Commands Verbal: Oriented GCS Score: 15 - Psych Psych: Normal mood, Normal affect Results - Vitals Vitals: Vital Signs - 24 hr 12/05/19 12/05/19 16:19 20:01 Temperature 36.6 C 36.7 C Heart Rate 86 66 Respiratory 16 18 Rate Blood Pressure 124/73 126/72 O2 Saturation 97 96 Oxygen O2 Source Room air PD MEDICAL DECISION MAKING - ED course Complexity details: re-evaluated patient, considered differential, d/w patient ED course: 34-year-old female with a migraine headache. Feels better after Fioricet and a 4% transnasal sphenopalatine ganglion block. Headache down to approximately a 3-4 out of 10. Minimal photophobia. She states that she would like to try going home at this point. Will prescribe Fioricet and intranasal Imitrex for home. Patient denies any possibility of . Patient counseled regarding signs and symptoms for which I believe and urgent re-evaluation would be necessary. Patient with good understanding of and agreement to plan and is comfortable going home at this time This document was made in part using voice recognition software. While efforts are made to proofread this document, sound alike and grammatical errors may occur. No subarachnoid hemorrhage. No aneurysm. No tumor. Departure - Departure Disposition: 01 Home, Self Care Clinical Impression: Migraine headache Qualifiers: Migraine type: unspecified Status migrainosus presence: without status migrainosus Intractability: not intractable Qualified Code(s): G43.909 - Migraine, unspecified, not intractable, without status migrainosus Condition: Good Instructions: ED Headache Migraine Follow-Up: Esdras Horowitz MD [Primary Care Provider] - Within 1 week Prescriptions: Butalb/Acetaminophen/Caffeine [Fioricet 50-300-40 mg Capsule] 1 cap PO Q6H PRN #10 capsule PRN Reason: headache Sumatriptan [Imitrex] 20 mg NS DAILY PRN #5 spray PRN Reason: migraine Comments: Return if you worsen. Drink plenty of fluids and rest. Discharge Date/Time: 12/05/19 20:16
[2019-12-05 20:02] VITALS: BP 126/72
== END 2019-12-05 20:16 | disposition home or self-care (01) ==
LOC: ED 16:13
DX: G43.909 Migraine, unspecified, not intractable, without status migrainosus (principal)
CPT/HCPCS: 99282; 99284; A9270

== ENCOUNTER 2019-12-13 17:25 | Emergency (ER) | payer MEDICAID ==
[2019-12-13] MEDS ORDERED: diphenhydrAMINE INJ 50 MG/ML VIAL IVP STA (17:47)
[2019-12-13] MEDS ORDERED: SODIUM CHLORIDE 0.9% 1,000 ML IV STA (17:47)
[2019-12-13] MEDS ORDERED: METOCLOPRAMIDE 10 MG/2 ML VIAL IVP STA (17:47)
--- NOTE | 2019-12-13 17:49 | ED Physician Documentation ---
PD HPI HEADACHE - Stated complaint Stated Complaint: HEADACHE/NAUSEA/VOMITTING - Chief complaint Chief Complaint: Neuro - History obtained from History obtained from: Patient - Additional information Additional information: 34-year-old woman with chronic migraine headaches, usually only about once a month and usually resolve with Imitrex at home. She said the current headache for about 10 days. Is waxing and waning but fairly constant and associated with a visual aura. She is been nauseous and vomiting but has not vomited today. No possibility of . She saw her primary care physician who gave her shot of toradol which was unhelpful, subsequently went to another ED where she received intranasal lidocaine and Fioricet which was fleetingly helpful. The headache is different than her usual headaches, her usual headaches are in one spot, this 1 kind of rolls around. There is no associated neck stiffness or fever though. 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 : None HEENT: None Psych: Depression, Anxiety Musculoskeletal: None Derm: None - Past Surgical History Past Surgical History: Yes - Present Medications Home Medications: Ambulatory Orders Medication Instructions Recorded Confirmed Levothyroxine Sodium [Synthroid] 200 mcg PO DAILY 03/15/18 05/10/19 Fexofenadine HCl [Destiny Allergy] 180 mg PO DAILY PRN 05/10/19 05/10/19 Fluticasone [Flonase] 1 spray NS DAILY PRN 05/10/19 05/10/19 Sumatriptan Succinate [Imitrex] 100 mg PO DAILY PRN 05/10/19 05/10/19 Butalb/Acetaminophen/Caffeine 1 cap PO Q6H PRN #10 capsule 12/05/19 [Fioricet 50-300-40 mg Capsule] Sumatriptan [Imitrex] 20 mg NS DAILY PRN #5 spray 12/05/19 Bupropion HCl [Wellbutrin Xl] 300 mg PO 12/13/19 Fluoxetine HCl [Prozac] 20 mg PO 12/13/19 cloNIDine [Catapres] 0.1 mg PO DAILY PM 12/13/19 12/13/19 - Allergies Allergies/Adverse Reactions: Allergies Allergy/AdvReac Type Severity Reaction Status Date / Time No Known Drug Allergies Allergy Verified 12/13/19 17:33 - Social History Does the pt smoke?: No Smoking Status: Never smoker Does the pt drink ETOH?: No Does the pt have substance abuse?: No - Immunizations Immunizations are current?: Yes - POLST Patient has POLST: No PD ED PE NORMAL - Vitals Vital signs reviewed: Yes - General General: Alert and oriented X 3, Other (Appears uncomfortable and photophobic) - HEENT HEENT: PERRL, EOMI - Neck Neck: Supple, no meningeal sign, No bony TTP - Neuro Neuro: Alert and oriented X 3, 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 She was very anxious with that and did request a CT of the head which given the length of time she has had it is not unreasonable and it was negative. She did not feel any better after Reglan and Benadryl. Got mild relief with Haldol and Ativan and requested discharge. Departure - Departure Disposition: 01 Home, Self Care Clinical Impression: Migraine Qualifiers: Migraine type: with aura Status migrainosus presence: with status migrainosus Intractability: intractable Qualified Code(s): G43.111 - Migraine with aura, intractable, with status migrainosus Condition: Good Record reviewed to determine appropriate education?: Yes Instructions: ED Headache Migraine Comments: Call your doctor to arrange a follow-up appointment, make the next available appointment. In the interim, return anytime if worse or if new symptoms develop. Discharge Date/Time: 12/13/19 19:18
--- NOTE | 2019-12-13 18:21 | CT Report ---
PROCEDURE: HEAD WO INDICATIONS: Headaches TECHNIQUE: Noncontrast 4.5 mm thick angled axial sections acquired from the foramen magnum to the vertex. For r adiation dose reduction, the following was used: automated exposure control, adjustment of mA and/or kV according to patient size. COMPARISON: None. FINDINGS: Image quality: Excellent. CSF spaces: Basal cisterns are patent. No extra-axial fluid collections. Ventricles are normal in size and shape. Brain: No midline shift. No intracranial masses or hemorrhage. Carlton-white matter interface is norm al. Skull and face: Calvarium and visualized facial bones are intact, without suspicious lesions. Sinuses: Visualized sinuses and mastoids are clear. IMPRESSION: No acute intracranial abnormality. Reviewed by: Chaka Kevin MD on 12/13/2019 6:19 PM PDT Approved by: Chaka Kevin MD on 12/13/2019 6:19 PM PDT Station ID: [id number]
[2019-12-13] MEDS ORDERED: HALOPERIDOL 5 MG/ML VIAL IVP ONE (18:36)
[2019-12-13] MEDS ORDERED: LORazepam 2 MG/ML VIAL IVP STA (18:36)
[2019-12-13 19:22] VITALS: BP 109/66
== END 2019-12-13 19:18 | disposition home or self-care (01) ==
LOC: ED 17:25
DX: G43.111 Migraine with aura, intractable, with status migrainosus (principal); F41.9 Anxiety disorder, unspecified
CPT/HCPCS: 70450; 96361; 96374; 96375; 99283; 99285; J1200; J2060; J2765

== ENCOUNTER 2020-06-14 08:00 | Outpatient (CLI) | payer MEDICAID ==
--- NOTE | 2020-06-14 12:13 | XRAY Report ---
PROCEDURE: Chest 2 View X-Ray INDICATIONS: CHEST PAIN ON BREATHING TECHNIQUE: 2 view(s) of the chest. COMPARISON: Chest radiograph dated 01/28/2018. FINDINGS: Surgical changes and devices: None. Lungs and pleura: No pleural effusions or pneumothorax. Increased bronchovascular markings in bilate ral hilar region are seen with mild bronchial wall thickening. Ill-defined increased opacity in right lower lung field. Mediastinum: Mediastinal contours are normal. Heart size is normal. Bones and chest wall: No suspicious bony abnormalities. Soft tissues appear unremarkable. IMPRESSION: Finding is suggestive of reactive airway disease such as bronchitis. Cannot rule out dev eloping small right lower lobe infiltrate. No pleural effusion or pneumothorax. Reviewed by: Mauro Oliver MD on 06/14/2020 12:12 PM PST Approved by: Mauro Oliver MD on 06/14/2020 12:12 PM PST Station ID: [id number]
--- NOTE | 2020-06-14 12:13 | XRAY Report ---
PROCEDURE: Ribs 2 View LT INDICATIONS: CHEST PAIN ON BREATHING TECHNIQUE: 2 views of the left ribs were acquired. COMPARISON: None FINDINGS: Surgical changes and devices: None. Bones and chest wall: No fractures or dislocations. No suspicious bony lesions. Overlying soft tis sues appear unremarkable. Lungs and pleura: The visualized lung appears clear. No pleural effusions or pneumothorax are visib le. IMPRESSION: No definite displaced left rib fracture is seen. Visualized left lung field is clear. Reviewed by: Mauro Oliver MD on 06/14/2020 12:12 PM PST Approved by: Mauro Oliver MD on 06/14/2020 12:12 PM PST Station ID: [id number]
== END 2020-06-14 23:59 | disposition home or self-care (01) ==
LOC: DI.S 08:00
PROVIDERS: ATTEND Physician Assistant Medical
DX: R91.8 Other nonspecific abnormal finding of lung field (principal)

== ENCOUNTER 2020-06-30 08:00 | Outpatient (CLI) | payer MEDICAID ==
[2020-06-30 13:36] LABS: BASOPHILS # (AUTO) 0.1 10^3/uL (0.0-0.1); BASOPHILS % (AUTO) 0.7 %; EOSINOPHILS # (AUTO) 0.1 10^3/uL (0.0-0.7); EOSINOPHILS % (AUTO) 0.9 %; HGB - HEMOGLOBIN 13.8 g/dL (12.0-16.0); LYMPHOCYTES % (AUTO) 27.2 %; MEAN CORPUSCULAR HEMOGLOBIN 27.7 pg (27.0-31.0); MEAN CORPUSCULAR HGB CONC 32.4 g/dL (32.0-36.0); MEAN CORPUSCULAR VOLUME 85.4 fL (81.0-99.0); MEAN PLATELET VOLUME 10.6 fL (7.9-10.8); MONOCYTES # (AUTO) 0.5 10^3/uL (0.0-1.0); MONOCYTES % (AUTO) 4.5 %; NEUTROPHILS # (AUTO) 7.2 10^3/uL (1.5-6.6); NEUTROPHILS % (AUTO) 66.1 %; PLT - PLATELET COUNT 315 10^3/uL (130-450); RED BLOOD COUNT 4.99 10^6/uL (4.20-5.40); RED CELL DISTRIBUTION WIDTH 13.4 % (12.0-15.0); WHITE BLOOD COUNT 10.9 x10^3/uL (4.8-10.8)
[2020-06-30 13:54] LABS: FREE T3 1.89 pg/mL (2.5-3.9)
[2020-06-30 13:55] LABS: THYROID STIMULATING HORMONE 8.84 uIU/mL (0.34-5.60)
[2020-06-30 13:57] LABS: FREE T4 (FREE THYROXINE) 0.78 ng/dL (0.58-1.64)
[2020-06-30 14:12] LABS: ALBUMIN 3.8 g/dL (3.2-5.5); ALBUMIN/GLOBULIN RATIO 1.5 (1.0-2.2); ALKALINE PHOSPHATASE 43 IU/L (42-121); ALT ALANINE AMINOTRANSFERASE 30 IU/L (10-60); AST ASPARTATE AMINOTRANSFERASE 19 IU/L (10-42); BILIRUBIN,TOTAL 0.5 mg/dL (0.2-1.0); BUN - BLOOD UREA NITROGEN 15 mg/dL (6-20); CALCIUM 8.9 mg/dL (8.5-10.3); CARBON DIOXIDE - CO2 26 mmol/L (21-32); CHLORIDE 102 mmol/L (101-111); CHOLESTEROL 223 mg/dL; CREATININE 0.9 mg/dL (0.4-1.0); GLUCOSE 91 mg/dL (70-100); HDL CHOLESTEROL 56 mg/dL; LDL CHOLESTEROL,CALCULATED 149 mg/dL; LDL/HDL RATIO 2.7 (<4.4); TOTAL PROTEIN 6.3 g/dL (6.7-8.2); VLDL CHOLESTEROL 18 mg/dL
== END 2020-06-30 23:59 | disposition home or self-care (01) ==
LOC: LAB.WCP 08:00
PROVIDERS: ATTEND Family Medicine
DX: E66.01 Morbid (severe) obesity due to excess calories (principal); R06.83 Snoring; E03.9 Hypothyroidism, unspecified; R73.01 Impaired fasting glucose; F41.9 Anxiety disorder, unspecified
CPT/HCPCS: 36415; 80053; 80061; 83036; 83721; 84439; 84443; 84481; 85025

== ENCOUNTER 2020-07-15 08:30 | Outpatient (CLI) | payer MEDICAID ==
[2020-07-15 09:15] VITALS: BP 110/72
--- NOTE | 2020-07-15 09:15 | SLEEP CARE CONSULTATION ---
Information from patient questionnaire entered by Seema Morejon. I have reviewed and concur with the information entered by Seema Morejon. This document represents the service I personally performed and the decisions made by me, Komal Perez ARNP. History of Present Illness Service Date and Time: 07/15/2020 0830 Reason for Visit: New patient Chief Complaint: reports: Unrefreshed sleep, Snoring, Excessive daytime sleepiness, Observed pauses in breathing, Fatigue Date of Onset: April 2020 Usual bedtime: 10 pm Time it takes to fall asleep: 15 minutes or less Snores at night: Yes Observed to quit breathing while asleep: Yes Sleeps alone due to snoring: Yes (sometimes) Number of times waking at night: 1-2 Reasons for waking at night: reports: Snoring, Bathroom, Other (nightmare) Toss, Turn, or Twitch while sleeping: Yes Recalls having dreams: Yes Usually gets out of bed at: 6:30 am Feels refreshed in the morning: No Morning headache: Yes (once a week, migraines too) Sleepy or fatigued during the day: Yes Ever fallen asleep while driving: No Takes day naps: Yes () Dreams during day naps: Yes Prior sleep studies: No Additional HPI information: I had the pleasure of seeing REID MORALEZ today regarding the possibility of her having a sleep disorder. Her current complaints are snoring, observed pauses in breathing, unrefreshed sleep and fatigue. She has been snoring for a while and is usually always tired. Her told her that she has been stopping breathing during the night since April. Both of her parents have sleep apnea, mother treated and father not treated. She decided to seek evaluation to take care of [facility]. She has a history of hypothyroidism, anxiety, depression and asthma. She states she is on blood pressure medication but this is prescribed by her psychiatrist for her anxiety/depression. - Parasomnia Symptoms Ever been unable to move upon waking from sleep: No Walks in sleep: No Talks in sleep: Yes Ever acted out dreams in sleep: No Ever felt weak in the knees when startled or emotional: Yes (not fallen to ground) Bothered by creepy, crawly, restless sensations in legs: Yes (evening mostly) Problems with memory or concentration: Yes (both, random times) Subjective Initial [place] Sleepiness Scale score: 14 (in 2020) Past Medical History Past Medical History: reports: Hypothyroidism, Anxiety, Asthma, Depression. 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 Patient is and lives in [place]. Have you smoked in the past 12 months: No Alcohol use: No Caffeine use: No Family History Family history of sleep disordered breathing: Yes (mom and dad) Family Hx Sleep Apnea: Mother: Sleep apnea - Treated, Father: Sleep apnea - Untreated Allergies and Home Medications Drug allergies reviewed: Yes (NKDA) Home medication list reviewed: Yes Allergy and home medication list: Vitamin D3 1000 iu Wellbutrin 300 mg Levothyroxine 200 mcg Fluticasone 50 mcg Levocetirizine 5 mg Fluoxetine HC 40 mg Clonidine HCL 0.1 mg Albuterol inhaler, prn Sumatriptan 100 mg, prn Mirena IUD Review of Systems Cardiovascular: denies: high blood pressure Gastrointestinal: denies: heartburn Neurological: reports: headaches, head trauma (when 11 years old cut open head, no concussion) Psychiatric: reports: anxiety, depression Ear/Nose/Throat: reports: nasal congestion, wisdom teeth removed. denies: injury to nose, tonsillectomy Endocrine: reports: thyroid disease, sluggishness Musculoskeletal: reports: joint pain Immunologic: reports: sneezing, rash, itching, allergies to food or environment (eucalyptus, seasonal) Physical Exam Blood Pressure: 110/72 Cuff size: wrist Heart Rate: 101 O2 Saturation: 98 Height: 5 ft 7 in Weight: 262 lb Body Mass Index: 41.0 BMI Classification: Morbidly Obese Neck circumference: 16 (inches) Nostrils: patent to airflow Mouth and throat: narrow oropharynx Soft palate: long Uvula visualization: 100% Mallampati Class I Tongue: normal in size Tonsils: 1+ Heart: regular rate and rhythm Lungs: clear bilaterally Impression and Plan 1. Suspected Obstructive Sleep Apnea-Hypopnea Syndrome, as suggested by a history of loud and irregular snoring, observed cessation of breath while asleep, morning headache, unrefreshed sleep, cognitive impairment, and excessive daytime sleepiness. Narrow oropharynx and obesity are common predisposing factors for obstructive sleep apnea-hypopnea syndrome. I recommend proceeding to polysomnography to confirm the diagnosis and to assess severity. If the patient has significant sleep disordered breathing, a manual CPAP titration study will also be performed to find the optimal treatment pressure. I informed the patient of what the sleep studies involve and after some discussion, obtained agreement to proceed. The pathophysiology of obstructive sleep apnea-hypopnea syndrome was discussed with the patient and health risks of cardiovascular and cerebrovascular disease if not treated. AAS brochure for obstructive sleep apnea-hypopnea syndrome given and reviewed. Risks of drowsy driving discussed in detail and patient advised to avoid long distance driving and to green chain puller at the first sign of drowsiness. Patient agreed to plan. * Schedule polysomnography +- manual CPAP titration study and return in 1-2 weeks after the study to discuss result and initiate therapy. * Avoid long distance driving or driving when feeling sleepy. * Avoid sedative and muscle relaxant around bedtime. * Attempt to lose weight. * Review instructions provided by trained office staff on how to prepare for the sleep study. * Return for follow-up after sleep study completed. Counseling Topics: Weight loss health impact Visit Type: In Office Time Spent with Patient (minutes): 31 Provider Statement: I spent 100% of the Face to Face Visit with the patient with greater than 50% spent counseling the patient and coordination of care.
== END 2020-07-15 08:31 | disposition home or self-care (01) ==
LOC: SC 08:30
PROVIDERS: ATTEND Nurse Practitioner Family
DX: G47.10 Hypersomnia, unspecified (principal); R41.89 Other symptoms and signs involving cognitive functions and awareness; G47.8 Other sleep disorders; R51.9 Headache, unspecified; R06.83 Snoring; R06.81 Apnea, not elsewhere classified; E66.01 Morbid (severe) obesity due to excess calories; Z68.41 Body mass index [BMI] 40.0-44.9, adult
CPT/HCPCS: 99203; 99212

== ENCOUNTER 2020-08-06 08:32 | Emergency (ER) | payer MEDICAID ==
[2020-08-06] MEDS ORDERED: DEXAMETHASONE 10 MG/ML VIAL PO STA (09:15)
[2020-08-06] MEDS ORDERED: CHERRY SYRUP 10 ML UDC PO ONE (09:15)
--- NOTE | 2020-08-06 09:18 | ED Physician Documentation ---
PD HPI DYSPNEA - Stated complaint Stated Complaint: SOA - Chief complaint Chief Complaint: Resp - History obtained from History obtained from: Patient - History of Present Illness Timing - onset: Today Timing - onset during: Rest Timing - duration: Hours Timing - details: Gradual onset, Still present Inciting event(s): URI Improved by: Inhaler/neb Worsened by: Exertion, Coughing Associated symptoms: Cough, Wheezing. No: Fever, Hemoptysis, Bilateral edema, Unilateral edema Similar symptoms before: Diagnosis (asthma) Recently seen: Not recently seen - Additional information Additional information: 35-year-old female with a history of mild intermittent asthma has developed symptoms of asthma again with wheezing and this morning she discovered that she did not have any puffs left in her inhaler that in 2018. She has not had to use her inhaler for several years. She has developed a cough productive of some sputum she denies any sore throat or ear pain she was treated for infection in May of this year when she fell and struck her ribs and had an x-ray done. She was asymptomatic at that time. She remembers taking antibiotic for 10 days. Review of Systems Constitutional: denies: Fever, Chills, Myalgias Eyes: denies: Decreased vision Nose: reports: Congestion. denies: Rhinorrhea / runny nose Throat: denies: Sore throat Cardiac: denies: Chest pain / pressure, Palpitations Respiratory: reports: Dyspnea, Cough, Wheezing GI: denies: Abdominal Pain, Nausea, Vomiting : denies: Dysuria, Frequency PD PAST MEDICAL HISTORY - Past Medical History Past Medical History: Yes Cardiovascular: None Respiratory: Asthma, Other Neuro: Headaches, Migraines Endocrine/Autoimmune: HyPOthyroidism GI: None QUALITY REVIEWER: Ovarian cysts : None HEENT: None Psych: Depression, Anxiety Musculoskeletal: None Derm: None - Past Surgical History Past Surgical History: Yes - Present Medications Home Medications: Ambulatory Orders Medication Instructions Recorded Confirmed Albuterol Sulf [Ventolin Hfa 1 - 2 puffs INH Q4HR PRN #1 inhaler 08/06/20 Inhaler] Albuterol Sulfate [Proair Hfa 2 puffs 08/06/20 Inhaler] Azithromycin [Zithromax] 250 mg PO DAILY #6 tablet 08/06/20 - Allergies Allergies/Adverse Reactions: Allergies Allergy/AdvReac Type Severity Reaction Status Date / Time Lactobacillus acidophilus AdvReac Unknown Verified 08/06/20 08:43 [From Acidophilus] - Social History Does the pt smoke?: No Smoking Status: Never smoker Does the pt drink ETOH?: No Does the pt have substance abuse?: No - Immunizations Immunizations are current?: Yes - POLST Patient has POLST: No PD ED PE NORMAL - Vitals Vital signs reviewed: Yes (Normal) - General General: Alert and oriented X 3, No acute distress, Well developed/nourished - HEENT HEENT: Atraumatic, PERRL, EOMI, Ears normal, Moist mucous membranes, Pharynx benign, Dentition benign - Neck Neck: Supple, no meningeal sign, No bony TTP - Cardiac Cardiac: RRR, No murmur - Respiratory Respiratory: No respiratory distress, Other (Diminished breath sounds with mild rhonchi in the right base) - Abdomen Abdomen: Soft, Non tender - Back Back: No CVA TTP, No spinal TTP - Derm Derm: Normal color, Warm and dry, No rash - Extremities Extremities: No deformity, No edema - Neuro Neuro: Alert and oriented X 3, manager presentation 2-12 intact, No motor deficit, No sensory deficit, Normal speech Eye Opening: Spontaneous Motor: Obeys Commands Verbal: Oriented GCS Score: 15 - Psych Psych: Normal mood, Normal affect Results - Vitals Vitals: Vital Signs - 24 hr 08/06/20 08:34 Temperature 36 C L Heart Rate 84 Respiratory 18 Rate Blood Pressure 108/68 O2 Saturation 98 Oxygen O2 Source Room air - Rads (name of study) chest Radiology: Prelim report reviewed (Impression: Question of right lower lobe airspace opacity. However, this appears similar to prior chest x-ray dating back to 2018 and may represent atelectasis or scarring.), EMP read indepedently, See rad report PD MEDICAL DECISION MAKING - ED course Complexity details: reviewed old records, reviewed results, re-evaluated patient, considered differential, d/w patient ED course: 35-year-old female with mild intermittent asthma does have some rhonchi on exam she has some subtle findings on chest x-ray we will place her back onto antibiotic and I have given her a dose of dexamethasone in the emergency department she is not currently wheezing and we will prescribe albuterol. Departure - Departure Disposition: 01 Home, Self Care Clinical Impression: Asthmatic bronchitis with acute exacerbation Qualifiers: Asthma severity: mild Asthma persistence: intermittent Qualified Code(s): J45.21 - Mild intermittent asthma with (acute) exacerbation Condition: Stable Instructions: ED Bronchitis Asthmatic Follow-Up: Esdras Horowitz MD [Primary Care Provider] - Prescriptions: Albuterol Sulf [Ventolin Hfa Inhaler] 1 - 2 puffs INH Q4HR PRN #1 inhaler PRN Reason: Shortness Of Air/Wheezing Azithromycin [Zithromax] 250 mg PO DAILY #6 tablet
--- NOTE | 2020-08-06 09:22 | XRAY Report ---
PROCEDURE: Chest 2 View X-Ray INDICATIONS: shortness of breath TECHNIQUE: 2 view(s) of the chest. COMPARISON: CXR 06/14/2020, 01/28/2018. FINDINGS: Surgical changes and devices: None. Lungs and pleura: No pleural effusions or pneumothorax. Question of airspace opacity in the right lo wer lobe. However, this appears similar the prior exams. Mediastinum: Mediastinal contours are normal. Heart size is normal. Bones and chest wall: No suspicious bony abnormalities. Soft tissues appear unremarkable. IMPRESSION: Question of right lower lobe airspace opacity. However, this appears similar to the prior CXR dating back to 2018 and may represent atelectasis or s carring. Reviewed by: Chaka Kevin MD on 08/06/2020 8:20 AM BABAK Approved by: Chaka Kevin MD on 08/06/2020 8:20 AM BABAK Station ID: [id number]
[2020-08-06 09:32] VITALS: BP 118/70
== END 2020-08-06 09:30 | disposition home or self-care (01) ==
LOC: ED 08:32
DX: J45.21 Mild intermittent asthma with (acute) exacerbation (principal)
CPT/HCPCS: 71046; 99283; 99284; A9270

== ENCOUNTER 2020-08-20 08:46 | Outpatient (CLI) | payer MEDICAID ==
--- OUTSIDE RECORDS SUMMARY | 2020-08-25 01:37 | EXTERNAL MEDICAL SUMMARY RPT | Continuity of Care Document ---
:1985 Demographics Phone Unavailable Preferred Language Unknown Marital Status Unknown Episcopal Affiliation Unknown Race Unknown Ethnic Group Unknown Author Organization [facility] Address [address] [place] [address] Phone Social History date description facility [phone]
== END 2020-08-20 08:47 | disposition home or self-care (01) ==
LOC: SC 08:46
PROVIDERS: ATTEND Nurse Practitioner Family
DX: G47.10 Hypersomnia, unspecified (principal); R06.81 Apnea, not elsewhere classified; R06.83 Snoring; R51.9 Headache, unspecified; R41.89 Other symptoms and signs involving cognitive functions and awareness; E66.01 Morbid (severe) obesity due to excess calories; Z68.41 Body mass index [BMI] 40.0-44.9, adult
CPT/HCPCS: 95806

== ENCOUNTER 2020-10-04 08:00 | Outpatient (CLI) | payer MEDICAID ==
[2020-10-04 12:45] LABS: THYROID STIMULATING HORMONE < 0.08 uIU/mL (0.34-5.60)
[2020-10-04 12:47] LABS: FREE T3 3.97 pg/mL (2.5-3.9)
== END 2020-10-04 23:59 | disposition home or self-care (01) ==
LOC: LAB.WCP 08:00
PROVIDERS: ATTEND Family Medicine
DX: E06.3 Autoimmune thyroiditis (principal)
CPT/HCPCS: 36415; 84439; 84443; 84481

== ENCOUNTER 2020-10-15 07:27 | Outpatient (CLI) | payer MEDICAID ==
--- NOTE | 2020-10-15 08:11 | SLEEP CARE CONSULTATION ---
Information from patient questionnaire entered by Seema Morejon. I have reviewed and concur with the information entered by Seema Morejon. This document represents the service I personally performed and the decisions made by , Komal Perez ARNP. History of Present Illness Service Date and Time: 10/15/2020726 Initial [place] Sleepiness Scale score: 14 (in 2020) Current [place] Sleepiness Scale score: 10 Additional HPI information: REID MORALEZ returns for follow up and results of the recently performed home sleep study. The patient was informed of the following findings: no significant sleep disordered breathing with an average AHI of 3.6 and martin oxygen saturation of 89%. Her supine AHI was elevated at 9.2. I explained the pathophysiology behind obstructive sleep apnea. Patient does not have sleep apnea and was advised how weight gain could increase the risk of developing sleep apnea in the future. I strongly encouraged the patient to lose weight. Patient does not have significant sleep disordered breathing but has elevated AHI in supine position so advised positional therapy. Methods to achieve positional management therapy were discussed; such as, positioning with pillows, wearing a T-shirt with tennis balls sewn into the back, Rematee shirt, Zzomba belt and Slumberbump belt. Patient has moderate snoring. Snoring can be reduced by weight loss. Weight loss is best achieved with diet consult. Patient instructed to contact PCP for referral. Snoring can also be treated with an oral appliance from a dentist. Advised to check insurance coverage. In addition, an ENT evaluation can be do to see if other treatment is indicated. Patient does not drink alcohol. Patient was cautioned about risks of drowsy driving until sleepiness symptoms resolve. Sleep Study - Results Type of Sleep Study: Home sleep study Prior sleep studies: No Polysomnography/Home Sleep Study results: Physician Impression: The quality of the study is good. The length of the study is adequate (> 240 minutes). Please also see the tabulated and graphic data. 1. No significant sleep disordered breathing, with an AHI of 3.6/hr and martin SaO2 of 89%. During the study, the patient had 7 apneas (7 obstructive, 0 central, 0 mixed) and 14 hypopneas. The longest episode lasted 62.5 seconds. The few respiratory events occurred almost exclusively during supine sleep (supine AHI was 9.2 and non-supine, 1.22). 2. Hypoxemia (ICD-10 R09.02), minimal, with the lowest oxygen saturation of 89 % and 0.1 minutes with SaO2 under 90%. Baseline oxygen saturation was normal (Average oxygen saturation was 95%). Allergies and Home Medications Home medication list reviewed: Yes (Levothyroxine 175 mg (decreased)) Review of Systems Review of systems same as previous: Yes (no changes) Physical Exam Heart Rate: 80 O2 Saturation: 98 Height: 5 ft 7 in Weight: 265 lb Body Mass Index: 41.5 BMI Classification: Morbidly Obese Impression and Plan Snoring but no significant sleep disordered breathing. She did have an elevated supine AHI and was advised to avoid sleeping supine. Patient advised that often weight loss will reduce snoring as well as apnea risk. An oral appliance can also be used for snoring. This would require a dental consultation. Patient cautioned not to use other online appliances as can cause bite issues. A list of accredited dentists in [facility] and one local dentist who makes oral appliances is available in office. Patient is advised to check if insurance will cover. An ENT consult can also be helpful to determine if any other treatment is an option. Patient to follow up as needed if her symptoms change or worsen. She voiced und erstanding and agreement with plan of care. * Attempt to lose weight * Avoid alcohol consumption near bedtime * The patient is cautioned about driving until sleepiness is completely resolved. * Return as needed for follow up. Counseling Topics: Weight loss health impact Visit Type: In Office Provider Statement: I spent 100% of the Face to Face Visit with the patient with greater than 50% spent counseling the patient and coordination of care.
== END 2020-10-15 07:28 | disposition home or self-care (01) ==
LOC: SC 07:27
PROVIDERS: ATTEND Nurse Practitioner Family
DX: G47.10 Hypersomnia, unspecified (principal); R06.83 Snoring; G47.8 Other sleep disorders; R06.81 Apnea, not elsewhere classified; R51.9 Headache, unspecified; R41.89 Other symptoms and signs involving cognitive functions and awareness; E66.01 Morbid (severe) obesity due to excess calories; Z68.41 Body mass index [BMI] 40.0-44.9, adult
CPT/HCPCS: 99212

== ENCOUNTER 2020-10-28 16:10 | Outpatient (CLI) | payer MEDICAID | END 2020-10-28 16:11 | disposition home or self-care (01) | LOC: COV 16:10 | PROVIDERS: ATTEND Family Medicine | DX: Z20.822 Contact with and (suspected) exposure to COVID-19 (principal) ==

== ENCOUNTER 2020-12-13 10:23 | Outpatient (CLI) | payer MEDICAID | END 2020-12-13 23:59 | disposition home or self-care (01) | LOC: LAB.N 10:23 | PROVIDERS: ATTEND Physician Assistant Medical | DX: R07.0 Pain in throat (principal); Z20.822 Contact with and (suspected) exposure to COVID-19 ==

== ENCOUNTER 2021-01-03 08:00 | Outpatient (CLI) | payer MEDICAID | END 2021-01-03 23:59 | disposition home or self-care (01) | LOC: LAB.N 08:00 | PROVIDERS: ATTEND Physician Assistant Medical | DX: R07.0 Pain in throat (principal); Z20.822 Contact with and (suspected) exposure to COVID-19 ==

== ENCOUNTER 2021-01-10 17:41 | Outpatient (CLI) | payer MEDICAID ==
[2021-01-10 18:13] LABS: HCT - HEMATOCRIT 40.1 % (37.0-47.0); HGB - HEMOGLOBIN 13.3 g/dL (12.0-16.0); MEAN CORPUSCULAR HEMOGLOBIN 27.3 pg (27.0-31.0); MEAN CORPUSCULAR HGB CONC 33.2 g/dL (32.0-36.0); MEAN CORPUSCULAR VOLUME 82.3 fL (81.0-99.0); MEAN PLATELET VOLUME 10.5 fL (7.9-10.8); RED BLOOD COUNT 4.87 10^6/uL (4.20-5.40); RED CELL DISTRIBUTION WIDTH 14.6 % (12.0-15.0); WHITE BLOOD COUNT 11.3 x10^3/uL (4.8-10.8)
[2021-01-10 18:25] LABS: ALBUMIN/GLOBULIN RATIO 1.4 (1.0-2.2); BILIRUBIN,TOTAL 0.5 mg/dL (0.2-1.0); CALCIUM 9.2 mg/dL (8.5-10.3); CRP - C-REACTIVE PROTEIN 1.8 mg/dL (0-1.0); POTASSIUM 3.9 mmol/L (3.5-5.0); TOTAL PROTEIN 6.8 g/dL (6.7-8.2); URIC ACID 5.8 mg/dL (2.6-7.2)
[2021-01-10 18:36] LABS: THYROID STIMULATING HORMONE 0.39 uIU/mL (0.34-5.60)
[2021-01-10 18:37] LABS: FREE T3 3.52 pg/mL (2.5-3.9)
[2021-01-10 18:38] LABS: FREE T4 (FREE THYROXINE) 1.04 ng/dL (0.58-1.64)
[2021-01-10 19:05] LABS: RHEUMATOID FACTOR NEGATIVE (Negative)
[2021-01-13 23:52] LABS: ANA PATTERN Nuclear, Homogeneous; ANA SCREEN POSITIVE (NEGATIVE); ANA TITER 1:40 titer
== END 2021-01-10 17:42 | disposition home or self-care (01) ==
LOC: LAB 17:41
PROVIDERS: ATTEND Family Medicine
DX: M13.80 Other specified arthritis, unspecified site (principal); E66.01 Morbid (severe) obesity due to excess calories; E03.9 Hypothyroidism, unspecified
CPT/HCPCS: 36415; 80053; 84439; 84443; 84481; 84550; 85027; 85651; 86038; 86140; 86430

== ENCOUNTER 2021-02-19 08:00 | Outpatient (CLI) | payer MEDICAID | END 2021-02-19 23:59 | disposition home or self-care (01) | LOC: LAB.N 08:00 | PROVIDERS: ATTEND Family Medicine | DX: R07.0 Pain in throat (principal); Z20.822 Contact with and (suspected) exposure to COVID-19 ==

== ENCOUNTER 2021-06-03 15:39 | Outpatient (CLI) | payer MEDICAID | END 2021-06-03 23:59 | disposition home or self-care (01) | LOC: LAB.N 15:39 | PROVIDERS: ATTEND Physician Assistant | DX: U07.1 COVID-19 (principal) ==

== ENCOUNTER 2021-09-28 07:52 | Outpatient (CLI) | payer MEDICAID ==
--- NOTE | 2021-09-28 09:09 | XRAY Report ---
PROCEDURE: Shoulder 2 View RT INDICATIONS: STRAIN OF MUSCLES, AND TENDONS OF THE R ROTATOR CUFF TECHNIQUE: 2 views of the shoulder were acquired. COMPARISON: None. FINDINGS: BONES: No acute, displaced fracture. The joint spaces are maintained. SOFT TISSUES: No focal abnormality or appreciable pneumothorax. IMPRESSION: 1.No acute osseous abnormality. Reviewed by: Asael Mena MD on 09/28/2021 9:07 AM PDT Approved by: Asael Mena MD on 09/28/2021 9:07 AM PDT Station ID: [id number]
== END 2021-09-28 23:00 | disposition home or self-care (01) ==
LOC: DI.N 07:52
PROVIDERS: ATTEND Family Medicine
DX: S46.011A Strain of muscle(s) and tendon(s) of the rotator cuff of right shoulder, initial encounter (principal); R05.9 Cough, unspecified; Z20.822 Contact with and (suspected) exposure to COVID-19

== ENCOUNTER 2022-01-21 14:10 | Outpatient (CLI) | payer MEDICAID ==
[2022-01-21 19:09] LABS: BASOPHILS # (AUTO) 0.1 10^3/uL (0.0-0.1); BASOPHILS % (AUTO) 0.9 %; EOSINOPHILS # (AUTO) 0.2 10^3/uL (0.0-0.7); EOSINOPHILS % (AUTO) 3.2 %; HCT - HEMATOCRIT 45.3 % (37.0-47.0); HGB - HEMOGLOBIN 15.3 g/dL (12.0-16.0); LYMPHOCYTES % (AUTO) 27.2 %; MEAN CORPUSCULAR HEMOGLOBIN 28.5 pg (27.0-31.0); MEAN CORPUSCULAR HGB CONC 33.8 g/dL (32.0-36.0); MEAN CORPUSCULAR VOLUME 84.5 fL (81.0-99.0); MEAN PLATELET VOLUME 11.3 fL (7.9-10.8); MONOCYTES # (AUTO) 0.5 10^3/uL (0.0-1.0); MONOCYTES % (AUTO) 6.3 %; NEUTROPHILS # (AUTO) 4.6 10^3/uL (1.5-6.6); PLT - PLATELET COUNT 336 10^3/uL (130-450); RED BLOOD COUNT 5.36 10^6/uL (4.20-5.40); RED CELL DISTRIBUTION WIDTH 13.3 % (12.0-15.0); WHITE BLOOD COUNT 7.4 x10^3/uL (4.8-10.8)
[2022-01-21 19:18] LABS: CALCIUM 9.2 mg/dL (8.5-10.3); CARBON DIOXIDE - CO2 25 mmol/L (21-32); CHLORIDE 102 mmol/L (101-111); GLUCOSE 84 mg/dL (70-100); SODIUM 135 mmol/L (135-145)
[2022-01-21 19:37] LABS: FREE T3 2.91 pg/mL (2.5-3.9)
[2022-01-21 19:38] LABS: FREE T4 (FREE THYROXINE) 0.49 ng/dL (0.58-1.64)
[2022-01-21 19:39] LABS: ESTIMATED AVERAGE GLUCOSE 105 mg/dL (70-100); HEMOGLOBIN A1c% 5.3 % (4.27-6.07)
[2022-01-21 19:54] LABS: ALBUMIN 4.3 g/dL (3.2-5.5); ALBUMIN/GLOBULIN RATIO 1.5 (1.0-2.2); ALKALINE PHOSPHATASE 54 IU/L (42-121); ALT ALANINE AMINOTRANSFERASE 26 IU/L (10-60); AST ASPARTATE AMINOTRANSFERASE 27 IU/L (10-42); BILIRUBIN,TOTAL 0.9 mg/dL (0.2-1.0); BUN - BLOOD UREA NITROGEN 9 mg/dL (6-20); CHOL/HDL RATIO 4.8 (<4.4); CHOLESTEROL 250 mg/dL; CREATININE 1.1 mg/dL (0.4-1.0); GFR - MDRD 56 (>89); HDL CHOLESTEROL 52 mg/dL; LDL CHOLESTEROL,CALCULATED 170 mg/dL; LDL/HDL RATIO 3.3 (<4.4); TOTAL PROTEIN 7.2 g/dL (6.7-8.2); TRIGLYCERIDES 138 mg/dL; VLDL CHOLESTEROL 28 mg/dL
[2022-01-21 20:04] LABS: THYROID STIMULATING HORMONE 79.81 uIU/mL (0.34-5.60)
== END 2022-01-21 14:11 | disposition home or self-care (01) ==
LOC: LAB.N 14:10
PROVIDERS: ATTEND Family Medicine
DX: E66.01 Morbid (severe) obesity due to excess calories (principal); E03.9 Hypothyroidism, unspecified; R73.01 Impaired fasting glucose; J45.909 Unspecified asthma, uncomplicated; G43.909 Migraine, unspecified, not intractable, without status migrainosus; E78.5 Hyperlipidemia, unspecified; F32.A Depression, unspecified
CPT/HCPCS: 36415; 80053; 80061; 83036; 83721; 84439; 84443; 84481; 85025

== ENCOUNTER 2022-08-28 14:29 | Emergency (ER) | payer MEDICAID ==
--- NOTE | 2022-08-28 14:39 | ED Physician Documentation ---
PD HPI URI - Stated complaint Stated Complaint: BODY ACHES/DIZZY - Chief complaint Chief Complaint: General - History obtained from History obtained from: Patient - History of Present Illness Timing - onset: How many weeks ago (2) Timing duration: Weeks (2) Timing details: Gradual onset, Still present, Waxing and waning Associated symptoms: Other (She complains of couple of weeks of generalized arthralgias and general weakness. No noted fevers or respiratory symptoms. She has become more painful generally in the last day or 2 and feels slightly lightheaded and sluggish thought process.). No: Fever, Nasal congestion, Sore throat, Swollen nodes, Dry cough Contributing factors: COPD / asthma (asthma, prior thyroiditis, and seasonal allergies.). No: Sick contact Worsened by: Activity Similar symptoms before: Has not had sx before Recently seen: Not recently seen Review of Systems Constitutional: reports: Myalgias (and particularly arthralgias.), Fatigue, Other (complaints of diffuse arthralgias, more of larger joints. No redness nor swelling.). denies: Fever, Chills Nose: denies: Rhinorrhea / runny nose, Congestion Throat: denies: Sore throat Cardiac: denies: Chest pain / pressure Respiratory: denies: Cough GI: denies: Abdominal Pain, Vomiting, Diarrhea Musculoskeletal: denies: Neck pain, Back pain Neurologic: reports: Confused (feels thought processing is sluggish "foggy".). 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 : None HEENT: None Psych: Depression, Anxiety Musculoskeletal: None Derm: None - Past Surgical History Past Surgical History: Yes - Present Medications Home Medications: Ambulatory Orders Medication Instructions Recorded Confirmed Albuterol Sulfate [Proair Hfa 2 puffs INH Q4HR PRN 08/06/20 08/28/22 Inhaler] Fluoxetine HCl [Prozac] 40 mg PO DAILY 08/28/22 08/28/22 Fluticasone/Salmeterol [Advair 1 inh INH BID 08/28/22 08/28/22 250-50 Diskus] Levocetirizine Dihydrochloride 5 mg PO DAILY 08/28/22 08/28/22 [Xyzal] Levonorgestrel 20 Mcg/24H [Mirena] 1 each IY .EVERY 5 YEARS 08/28/22 08/28/22 Levothyroxine Sodium 175 mcg PO DAILY 08/28/22 08/28/22 [Levothyroxine] Liothyronine [Cytomel] 10 mcg PO QDAC 08/28/22 08/28/22 Sumatriptan Succinate [Imitrex] 100 mg PO DAILY PM PRN 08/28/22 08/28/22 dexAMETHasone [Decadron] 4 mg PO DAILY #5 tablet 08/28/22 - Allergies Allergies/Adverse Reactions: Allergies Allergy/AdvReac Type Severity Reaction Status Date / Time eucalyptus Allergy Respiratory Verified 08/28/22 15:06 Lactobacillus acidophilus AdvReac Unknown Verified 08/28/22 15:06 [From Acidophilus] - Social History Does the pt smoke?: No Smoking Status: Never smoker Does the pt drink ETOH?: No Does the pt have substance abuse?: No - Immunizations Immunizations are current?: Yes - POLST Patient has POLST: No PD ED PE NORMAL - Vitals Vital signs reviewed: Yes - General General: Alert and oriented X 3, Well developed/nourished, Other (appears uncomfortable with diffuse joint pains. Able to converse well. ) - HEENT HEENT: Pharynx benign - Neck Neck: Supple, no meningeal sign, No adenopathy - Cardiac Cardiac: RRR, No murmur - Respiratory Respiratory: Clear bilaterally - Abdomen Abdomen: Soft, Non tender - Derm Derm: Normal color, Warm and dry - Extremities Extremities: No edema, No calf tenderness / cord, Other (no redness, effusions, nor swelling of joints. Some general diffuse tenderness of major joints. ) - Neuro Neuro: Alert and oriented X 3, No motor deficit, Normal speech Results - Vitals Vitals: Vital Signs - 24 hr 08/28/22 14:32 Temperature 36.8 C Heart Rate 94 Respiratory 18 Rate Blood Pressure 154/85 H O2 Saturation 100 Oxygen O2 Source Room air - Labs Labs: Laboratory Tests 08/28/22 08/28/22 08/28/22 15:05 15:05 15:05 WBC 10.2 RBC 5.23 Hgb 14.6 Hct 43.8 MCV 83.7 MCH 27.9 MCHC 33.3 RDW 13.2 Plt Count 311 MPV 10.2 Neut # (Auto) 6.2 Lymph # (Auto) 2.7 [place] # (Auto) 0.9 Eos # (Auto) 0.3 Baso # (Auto) 0.1 Absolute Nucleated RBC 0.00 Nucleated RBC % 0.0 ESR 10 Sodium Potassium Chloride Carbon Dioxide Anion Gap BUN Creatinine Estimated GFR (MDRD) Glucose Calcium Total Bilirubin AST ALT Alkaline Phosphatase Total Creatine Kinase C-Reactive Protein Total Protein Albumin Globulin Albumin/Globulin Ratio Lipase TSH Nasal Adenovirus (PCR) Nasal B. parapertussis DNA (PCR) Nasal Coronavir 229E PCR Nasal Coronavir HKU1 PCR Nasal Coronavir NL63 PCR Nasal Coronavir OC43 PCR Nasal Enterovir/Rhinovir PCR Nasal Influenza B PCR Nasal Influenza A PCR Nasal Parainfluen 1 PCR Nasal Parainfluen 2 PCR Nasal Parainfluen 3 PCR Nasal Parainfluen 4 PCR Nasal RSV (PCR) Nasal B.pertussis DNA PCR Nasal C.pneumoniae (PCR) [place] Human Metapneumo PCR Nasal M.pneumoniae (PCR) Nasal SARS-CoV-2 (PCR) Rheumatoid Factor NEGATIVE 08/28/22 08/28/22 08/28/22 15:05 15:05 15:25 WBC RBC Hgb Hct MCV MCH MCHC RDW Plt Count MPV Neut # (Auto) Lymph # (Auto) [place] # (Auto) Eos # (Auto) Baso # (Auto) Absolute Nucleated RBC Nucleated RBC % ESR Sodium 137 Potassium 3.8 Chloride 105 Carbon Dioxide 26 Anion Gap 6.0 BUN 15 Creatinine 0.8 Estimated GFR (MDRD) 80 L Glucose 88 Calcium 8.8 Total Bilirubin 0.2 AST 22 ALT 31 Alkaline Phosphatase 53 Total Creatine Kinase 61 C-Reactive Protein 1.5 H Total Protein 7.1 Albumin 4.1 Globulin 3.0 Albumin/Globulin Ratio 1.4 Lipase 50 TSH 0.78 Nasal Adenovirus (PCR) NOT DETECTED Nasal B. parapertussis DNA (PCR) NOT DETECTED Nasal Coronavir 229E PCR NOT DETECTED Nasal Coronavir HKU1 PCR NOT DETECTED Nasal Coronavir NL63 PCR NOT DETECTED Nasal Coronavir OC43 PCR NOT DETECTED Nasal Enterovir/Rhinovir PCR NOT DETECTED Nasal Influenza B PCR NOT DETECTED Nasal Influenza A PCR NOT DETECTED Nasal Parainfluen 1 PCR NOT DETECTED Nasal Parainfluen 2 PCR NOT DETECTED Nasal Parainfluen 3 PCR NOT DETECTED Nasal Parainfluen 4 PCR NOT DETECTED Nasal RSV (PCR) NOT DETECTED Nasal B.pertussis DNA PCR NOT DETECTED Nasal C.pneumoniae (PCR) NOT DETECTED [place] Human Metapneumo PCR NOT DETECTED Nasal M.pneumoniae (PCR) NOT DETECTED Nasal SARS-CoV-2 (PCR) NOT DETECTED Rheumatoid Factor PD Medical Decision Making - ED course Complexity details: reviewed results (basic blood tests are good. Normal CK so no muscle breakdown. ESR and CRP minimally elevated, so not likely autoimmune. Consider infectious, such as viral. ), considered differential (She complains of couple of weeks of generalized arthralgias and general weakness. No noted fevers or respiratory symptoms. She has become more painful generally in the last day or 2 and feels slightly lightheaded and sluggish thought process. No headache.) Reviewed Lab Results: Normal white count evaluated. I ordered chemistry for lytes and sugar to eval diabetes, etc. TSH to verify good dose of thyroid meds. To eval muscle/joint aches, I did CK as well as CRP/ESR/RF, all of which are normal. Viral resp panel is negative for major viruses. Departure - Departure Disposition: 01 Home, Self Care Clinical Impression: Altered thought processes Arthralgia Qualifiers: Joint pain location: unspecified Qualified Code(s): M25.50 - Pain in unspecified joint Condition: Stable Record reviewed to determine appropriate education?: Yes Follow-Up: Esdras Horowitz MD [Primary Care Provider] - Prescriptions: dexAMETHasone [Decadron] 4 mg PO DAILY #5 tablet Comments: Your basic blood tests including blood count and chemistry panel are normal with a normal white count and no abnormalities of the electrolytes, blood sugar, kidney function. More specific testing for inflammatory markers including the sed rate CRP and rheumatoid factor are negative. Given your other allergy and autoimmune type disorders, it was look for signs of immune arthritis. This however does not appear to be the case. Your viral respiratory panel is negative for the viruses tested. Dina negative for COVID influenza RSV and a few others. This does not exclude all viral type illnesses. At this point it is unclear the cause of your arthralgias/painful joints and aches. See how you feel over the next few days. Stay well-hydrated. Tylenol or ibuprofen as needed for pains.
[2022-08-28] MEDS ORDERED: KETOROLAC 30 MG/ML VIAL IM STA (14:57)
[2022-08-28] MEDS ORDERED: ACETAMINOPHEN 325 MG TABLET PO STA (14:57)
[2022-08-28 15:21] LABS: BASOPHILS # (AUTO) 0.1 10^3/uL (0.0-0.1); BASOPHILS % (AUTO) 0.6 %; EOSINOPHILS # (AUTO) 0.3 10^3/uL (0.0-0.7); EOSINOPHILS % (AUTO) 2.6 %; HCT - HEMATOCRIT 43.8 % (37.0-47.0); HGB - HEMOGLOBIN 14.6 g/dL (12.0-16.0); LYMPHOCYTES # (AUTO) 2.7 10^3/uL (1.5-3.5); LYMPHOCYTES % (AUTO) 26.5 %; MEAN CORPUSCULAR HEMOGLOBIN 27.9 pg (27.0-31.0); MEAN CORPUSCULAR HGB CONC 33.3 g/dL (32.0-36.0); MEAN CORPUSCULAR VOLUME 83.7 fL (81.0-99.0); MEAN PLATELET VOLUME 10.2 fL (7.9-10.8); MONOCYTES # (AUTO) 0.9 10^3/uL (0.0-1.0); MONOCYTES % (AUTO) 8.7 %; NEUTROPHILS # (AUTO) 6.2 10^3/uL (1.5-6.6); NEUTROPHILS % (AUTO) 61.1 %; PLT - PLATELET COUNT 311 10^3/uL (130-450); RED BLOOD COUNT 5.23 10^6/uL (4.20-5.40); RED CELL DISTRIBUTION WIDTH 13.2 % (12.0-15.0); WHITE BLOOD COUNT 10.2 x10^3/uL (4.8-10.8)
[2022-08-28 15:57] LABS: ALBUMIN 4.1 g/dL (3.2-5.5); ALBUMIN/GLOBULIN RATIO 1.4 (1.0-2.2); BILIRUBIN,TOTAL 0.2 mg/dL (0.2-1.0); CALCIUM 8.8 mg/dL (8.5-10.3); CREATININE 0.8 mg/dL (0.4-1.0); CRP - C-REACTIVE PROTEIN 1.5 mg/dL (0-1.0); POTASSIUM 3.8 mmol/L (3.5-5.0); TOTAL PROTEIN 7.1 g/dL (6.7-8.2)
[2022-08-28 16:02] LABS: RHEUMATOID FACTOR NEGATIVE (Negative)
[2022-08-28 16:22] LABS: B. PARAPERTUSSIS- RESP PCR PAN NOT DETECTED; B. PERTUSSIS- RESP PCR PANEL NOT DETECTED; C. PNEUMONIAE- RESP PCR PANEL NOT DETECTED; CORONAVIRUS 229E-RESP PCR NOT DETECTED; CORONAVIRUS HKU1-RESP PCR NOT DETECTED; CORONAVIRUS NL63-RESP PCR NOT DETECTED; CORONAVIRUS OC43-RESP PCR NOT DETECTED; HUMAN METAPNEUMOVIRUS NOT DETECTED; INFLUENZA A- RESP PCR PANEL NOT DETECTED; INFLUENZA B - RESP PCR PANEL NOT DETECTED; M. PNEUMONIAE- RESP PCR PANEL NOT DETECTED; PARAINFLUENZA VIRUS 1 NOT DETECTED; PARAINFLUENZA VIRUS 2 NOT DETECTED; PARAINFLUENZA VIRUS 3 NOT DETECTED; PARAINFLUENZA VIRUS 4 NOT DETECTED; RHINOVIRUS/ENTEROVIRUS NOT DETECTED; RSV- RESP PCR PANEL NOT DETECTED; SARS-CoV-2 -RESP PCR PANEL NOT DETECTED
[2022-08-28 16:45] VITALS: BP 139/90
== END 2022-08-28 16:45 | disposition home or self-care (01) ==
LOC: ED 14:29
DX: R41.82 Altered mental status, unspecified (principal); M25.50 Pain in unspecified joint; Z20.822 Contact with and (suspected) exposure to COVID-19
CPT/HCPCS: 36415; 80053; 82550; 83690; 84443; 85025; 85651; 86140; 86430; 87633; 96372; 99283; A9270

== ENCOUNTER 2023-01-04 19:19 | Outpatient (CLI) | payer OTHER, MEDICAID ==
--- NOTE | 2023-01-05 10:41 | XRAY Report ---
PROCEDURE: Foot 3 View RT INDICATIONS: SPRAIN OF METATARSOPHALENGEAL JOINT OF RIGHT TOE TECHNIQUE: 3 views of the foot were acquired. COMPARISON: Right foot radiographs 02/11/2019 FINDINGS: Bones: No acute appearing fractures or dislocations. Plantar and posterior calcaneal spurs are prese nt. Soft tissues: No suspicious soft tissue calcifications. IMPRESSION: No acute bony abnormality. If pain persists with conservative management, consider repeat radiographs in 10-14 days or cross-sectional imaging. Reviewed by: Anant Ascencio MD on 01/05/2023 10:39 AM PDT Approved by: Anant Ascencio MD on 01/05/2023 10:39 AM PDT Station ID: [id number]
== END 2023-01-04 19:20 | disposition home or self-care (01) ==
LOC: DI 19:19
PROVIDERS: ATTEND Physician Assistant Medical
DX: S93.521A Sprain of metatarsophalangeal joint of right great toe, initial encounter (principal)

== ENCOUNTER 2023-03-30 13:12 | Emergency (ER) | payer MEDICAID ==
--- NOTE | 2023-03-30 13:28 | ED Physician Documentation ---
PD HPI OPHTHO - Stated complaint Stated Complaint: LT EYE BLURRY - Chief complaint Chief Complaint: Heent - History obtained from History obtained from: Patient - History of Present Illness Timing - onset: How many hours ago (several), Today Timing - duration: Hours (noted left eye blurry and somewhat doubled vision when awoke this morning and has persisted. No eye pain nor headache.) Timing - details: Gradual onset, Still present Location: Left Quality / character: No: Burning, Aching Associated symptoms: Double vision (with just the left eye. Does not improve with closing right eye. Right eye normal vision separately.), Decreased vision (blurry but not darkened nor cloudy.), Other (no eye pain itself nor with light exposure.). 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 : None HEENT: None Psych: Depression, Anxiety Musculoskeletal: None Derm: None - Past Surgical History Past Surgical History: Yes - Present Medications Home Medications: Ambulatory Orders Medication Instructions Recorded Confirmed Albuterol Sulfate [Proair Hfa 2 puffs INH Q4HR PRN 08/06/20 08/28/22 Inhaler] Fluoxetine HCl [Prozac] 40 mg PO DAILY 08/28/22 08/28/22 Fluticasone/Salmeterol [Advair 1 inh INH BID 08/28/22 08/28/22 250-50 Diskus] Levocetirizine Dihydrochloride 5 mg PO DAILY 08/28/22 08/28/22 [Xyzal] Levonorgestrel 20 Mcg/24H [Mirena] 1 each IY .EVERY 5 YEARS 08/28/22 08/28/22 Levothyroxine Sodium 175 mcg PO DAILY 08/28/22 08/28/22 [Levothyroxine] Liothyronine [Cytomel] 10 mcg PO QDAC 08/28/22 08/28/22 Sumatriptan Succinate [Imitrex] 100 mg PO DAILY PM PRN 08/28/22 08/28/22 dexAMETHasone [Decadron] 4 mg PO DAILY #5 tablet 08/28/22 - Allergies Allergies/Adverse Reactions: Allergies Allergy/AdvReac Type Severity Reaction Status Date / Time eucalyptus Allergy Respiratory Verified 02/10/23 20:07 Lactobacillus acidophilus AdvReac Unknown Verified 02/10/23 20:07 [From Acidophilus] - Social History Does the pt smoke?: No Smoking Status: Never smoker Does the pt drink ETOH?: No Does the pt have substance abuse?: No - Immunizations Immunizations are current?: Yes - POLST Patient has POLST: No PD ED PE EXPANDED - General General: No acute distress - Eyes Eyes: PERRL (no pain with light), Normal accommodation, EOMI, Normal corneas, Anterior chambers clear, Normal fundi, Temp arteries nontender, Other (IOP 14). No: Injected conj/sclera, Exudate, Hyphema, Papilledema, Retinal hemorrhage Results - Vitals Vitals: Oxygen O2 Source Room air PD Medical Decision Making - ED course Complexity details: considered differential (blurred vision left eye and an element of diplopia just left eye. No headache. History of migraines but has not had visual auras regularly. ), d/w patient Reviewed Lab Results: eye exam showed normal direct and consensual constriction to light. No eye pain. Normal anterior chamber. Postierior chamber appears nromal (undilated eye) with normal appearing retina and no cloudiness to suggest vitreous hemorrhage. Normal IOP of 14. EOMs normal. Exam is nrmal that I feel serious causes are elcuded. She has diplopia vision with single left eye. None in right eye separately. This would indicate not a central cause like tumor or bleed. It could be ocular migraine and be affecting just the one eye. Discussed with her the normalcy of the exam at this time. She is okay with presuming migraine and see how she does through the day. She wears glasses and had coordinator of evaluation. To see them if not improved in a day or so, and return to ED if worse or other symptms such as eye pain (sepearate from typical migraine pain), loss of vision, other symptoms. She could try one of her tryptan migraine meds when she gets home. Departure - Departure Disposition: Home, Self Care Clinical Impression: Blurred vision, left eye, Ocular migraine Condition: Stable Record reviewed to determine appropriate education?: Yes Follow-Up: Esdras Horowitz MD [Primary Care Provider] - Comments: Your eye exam appears normal to me. The back chamber appears normal without any signs of retinal abnormality and normal blood flow. The back chamber is not cloudy so no signs of bleeding or hemorrhage. The front chambers also appear n ormal. Your intraocular pressure is in the normal range. At this point I would presume a ocular migraine or migraine or aura without headache. You could try one of your sumatriptan and see if it helps. Otherwise recheck with your coordinator of evaluation or such if not improved in the next day or 2 and return to the ER in particular if you have associated pain or any other new symptoms with that. Forms: PCP List Discharge Date/Time: 03/30/23 14:25
[2023-03-30 13:40] VITALS: BP 134/70; O2SAT 97
== END 2023-03-30 14:25 | disposition home or self-care (01) ==
LOC: ED 13:12
DX: G43.B0 Ophthalmoplegic migraine, not intractable (principal)
CPT/HCPCS: 99282; 99283

== ENCOUNTER 2023-04-09 12:14 | Outpatient (CLI) | payer MEDICAID ==
[2023-04-09 12:57] LABS: THYROID STIMULATING HORMONE 0.09 uIU/mL (0.34-5.60)
[2023-04-09 16:32] LABS: BUN - BLOOD UREA NITROGEN 14 mg/dL (6-20); CALCIUM 9.5 mg/dL (8.5-10.3); CARBON DIOXIDE - CO2 26 mmol/L (21-32); CHLORIDE 106 mmol/L (101-111); CHOL/HDL RATIO 5.4 (<4.4); CHOLESTEROL 193 mg/dL; CREATININE 0.8 mg/dL (0.6-1.3); GFR - MDRD 80 (>89); GLUCOSE 83 mg/dL (74-104); HDL CHOLESTEROL 36 mg/dL; LDL CHOLESTEROL,CALCULATED 124 mg/dL; LDL/HDL RATIO 3.4 (<4.4); POTASSIUM 4.2 mmol/L (3.5-4.5); SODIUM 140 mmol/L (135-145); TRIGLYCERIDES 164 mg/dL (48-352); VLDL CHOLESTEROL 33 mg/dL
[2023-04-09 21:15] LABS: ESTIMATED AVERAGE GLUCOSE 94 mg/dL (70-100); HEMOGLOBIN A1c% 4.9 % (4.27-6.07)
== END 2023-04-09 12:15 | disposition home or self-care (01) ==
LOC: LAB 12:14
PROVIDERS: ATTEND Family Medicine
DX: E03.9 Hypothyroidism, unspecified (principal); R42 Dizziness and giddiness; R73.01 Impaired fasting glucose
CPT/HCPCS: 36415; 80048; 80061; 83036; 83721; 84439; 84443

== ENCOUNTER 2023-06-28 12:08 | Outpatient (CLI) | payer MEDICAID ==
[2023-06-28 12:23] LABS: HCT - HEMATOCRIT 43.7 % (37.0-47.0); HGB - HEMOGLOBIN 14.8 g/dL (12.0-16.0); MEAN CORPUSCULAR HEMOGLOBIN 27.7 pg (27.0-31.0); MEAN CORPUSCULAR HGB CONC 33.9 g/dL (32.0-36.0); MEAN CORPUSCULAR VOLUME 81.7 fL (81.0-99.0); RED BLOOD COUNT 5.35 10^6/uL (4.20-5.40); RED CELL DISTRIBUTION WIDTH 13.3 % (12.0-15.0); WHITE BLOOD COUNT 7.6 x10^3/uL (4.8-10.8)
[2023-06-28 12:52] LABS: THYROID STIMULATING HORMONE 0.5 uIU/mL (0.34-5.60)
== END 2023-06-28 12:09 | disposition home or self-care (01) ==
LOC: LAB 12:08
PROVIDERS: ATTEND Family Medicine
DX: R00.2 Palpitations (principal)
CPT/HCPCS: 36415; 84443; 85027

== ENCOUNTER 2023-09-17 14:55 | Outpatient (CLI) | payer MEDICAID ==
--- NOTE | 2023-09-17 16:54 | Ultrasound Report ---
PROCEDURE: Pelvic w/Transvaginal INDICATIONS: IUD SURVEILLANCE TECHNIQUE: Real-time scanning was performed of the pelvic organs, with image documentation. Additional endovagi nal scanning was necessary due to incomplete visualization of the adnexal and endometrial structures by transabdominal scanning. COMPARISON: None. FINDINGS: Uterus: Uterus is anteverted and normal in size at 11.2 x 4.7 x 6.2 cm. The myometrium is homogeneo us. The endometrium measures 9 mm in combined thickness. IUD within the central endometrium. Ovaries: The right ovary measures 5.7 x 5.0 x 5.8 cm, with a calculated ovarian volume of 89 cc. Th e left ovary measures 2.6 x 2.5 x 2.5 cm, with a calculated ovarian volume of 8.2 cc. Simple appearin g right ovarian cyst measures 4.8 x 3.8 x 3.5 cm. Less than 12 follicles can be seen in each ovary. No adnexal masses are seen. No cystic lesions measuring greater than 3 cm. Other: No pathologic free abdominal or pelvic fluid. IMPRESSION: IUD appears appropriately positioned within the central endometrium. Simple appearing right ovarian cyst measuring 4.8 cm. In the absence of pelvic pain, no further follo w-up is indicated. Reviewed by: Solo Fonseca MD on 09/17/2023 4:24 PM PDT Approved by: Solo Fonseca MD on 09/17/2023 4:24 PM PDT Station ID: [id number]
== END 2023-09-17 14:56 | disposition home or self-care (01) ==
LOC: DI 14:55
PROVIDERS: ATTEND Obstetrics & Gynecology
DX: Z30.431 Encounter for routine checking of intrauterine contraceptive device (principal); N83.201 Unspecified ovarian cyst, right side

== ENCOUNTER 2023-09-19 12:41 | Emergency (ER) | payer MEDICAID ==
[2023-09-19 13:16] LABS: BASOPHILS # (AUTO) 0.1 10^3/uL (0.0-0.1); BASOPHILS % (AUTO) 0.8 %; EOSINOPHILS # (AUTO) 0.2 10^3/uL (0.0-0.7); EOSINOPHILS % (AUTO) 3.2 %; HCT - HEMATOCRIT 46.2 % (37.0-47.0); HGB - HEMOGLOBIN 15.1 g/dL (12.0-16.0); MEAN CORPUSCULAR HEMOGLOBIN 27.5 pg (27.0-31.0); MEAN CORPUSCULAR HGB CONC 32.7 g/dL (32.0-36.0); MEAN PLATELET VOLUME 10.1 fL (7.9-10.8); MONOCYTES # (AUTO) 0.5 10^3/uL (0.0-1.0); MONOCYTES % (AUTO) 6.6 %; NEUTROPHILS # (AUTO) 4.7 10^3/uL (1.5-6.6); NEUTROPHILS % (AUTO) 62.7 %; PLT - PLATELET COUNT 290 10^3/uL (130-450); RED CELL DISTRIBUTION WIDTH 13.3 % (12.0-15.0); WHITE BLOOD COUNT 7.6 x10^3/uL (4.8-10.8)
[2023-09-19 13:35] LABS: ALBUMIN 4.3 g/dL (3.2-5.5); ALBUMIN/GLOBULIN RATIO 1.5 (1.0-2.2); BILIRUBIN,TOTAL 0.3 mg/dL (0.2-1.0); CALCIUM 9.6 mg/dL (8.5-10.3); CREATININE 0.8 mg/dL (0.6-1.3); POTASSIUM 4.3 mmol/L (3.5-4.5); TOTAL PROTEIN 7.1 g/dL (6.4-8.9)
--- NOTE | 2023-09-19 15:13 | ED Physician Documentation ---
History of Present Illness - Stated complaint Stated Complaint: ,LOWER ABD PX - Chief complaint Chief Complaint: Abd Pain - History obtained from History obtained from: Patient - History of Present Illness Timing: Today Pain level max: 9 Pain level now: 6 - Additonal information Additional information: Patient is a 38-year-old female who presents to the emergency department the right-sided pelvic pain that started today. She states that is very sharp in nature. Rated as a 9 out of 10 at maximum, currently a 6 out of 10. She states she was seen here over the weekend and told that she has an ovarian cyst on the right side, 4.8 cm. No fevers. No chills. No nausea or vomiting. No diarrhea. No constipation. No vaginal bleeding or discharge. Pain is worse with movement and palpation, better with remaining still. 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 : None HEENT: None Psych: Depression, Anxiety Musculoskeletal: None Derm: None - Past Surgical History Past Surgical History: Yes - Present Medications Home Medications: Ambulatory Orders Medication Instructions Recorded Confirmed Albuterol Sulfate [Proair Hfa 2 puffs INH Q4HR PRN 08/06/20 08/28/22 Inhaler] Levocetirizine Dihydrochloride 5 mg PO DAILY 08/28/22 08/28/22 [Xyzal] Levonorgestrel 20 Mcg/24H [Mirena] 1 each IY .EVERY 5 YEARS 08/28/22 08/28/22 Levothyroxine Sodium 175 mcg PO DAILY 08/28/22 08/28/22 [Levothyroxine] Liothyronine [Cytomel] 10 mcg PO QDAC 08/28/22 08/28/22 - Allergies Allergies/Adverse Reactions: Allergies Allergy/AdvReac Type Severity Reaction Status Date / Time eucalyptus Allergy Respiratory Verified 09/19/23 12:54 Lactobacillus acidophilus AdvReac Unknown Verified 09/19/23 12:54 [From Acidophilus] - Social History Does the pt smoke?: No Smoking Status: Never smoker Does the pt drink ETOH?: No Does the pt have substance abuse?: No - Immunizations Immunizations are current?: Yes - POLST Patient has POLST: No PD ED PE NORMAL - Vitals Vital signs reviewed: Yes - General General: Alert and oriented X 3, No acute distress - HEENT HEENT: Moist mucous membranes - Neck Neck: Supple, no meningeal sign - Cardiac Cardiac: RRR, Strong equal pulses - Respiratory Respiratory: No respiratory distress, Clear bilaterally - Abdomen Abdomen: Soft, Non distended, Other (Mild tenderness palpation right low pelvic. No tenderness at McBurney's point. Otherwise normal abdominal exam) - Female Female : Pt declined - Back Back: No CVA TTP, No spinal TTP - Derm Derm: Warm and dry - Extremities Extremities: No edema - Neuro Neuro: Alert and oriented X 3 - Psych Psych: Normal mood, Normal affect Results - Vitals Vitals: Vital Signs - 24 hr 09/19/23 09/19/23 09/19/23 12:47 15:30 17:00 Temperature 36.5 C Heart Rate 88 82 67 Respiratory 18 18 18 Rate Blood Pressure 144/81 H 136/81 H 137/78 H O2 Saturation 98 98 99 09/19/23 18:50 Temperature 36.4 C L Heart Rate 83 Respiratory 18 Rate Blood Pressure 147/90 H O2 Saturation 99 Oxygen O2 Source Room air - Labs Labs: Laboratory Tests 09/19/23 09/19/23 09/19/23 12:40 13:11 13:11 WBC 7.6 RBC 5.50 H Hgb 15.1 Hct 46.2 MCV 84.0 MCH 27.5 MCHC 32.7 RDW 13.3 Plt Count 290 MPV 10.1 Neut # (Auto) 4.7 Lymph # (Auto) 2.0 [place] # (Auto) 0.5 Eos # (Auto) 0.2 Baso # (Auto) 0.1 Absolute Nucleated RBC 0.00 Nucleated RBC % 0.0 Sodium 138 Potassium 4.3 Chloride 105 Carbon Dioxide 29 Anion Gap 4.0 L BUN 11 Creatinine 0.8 Estimated GFR (MDRD) 80 L Glucose 117 H Calcium 9.6 Total Bilirubin 0.3 AST 19 ALT 24 Alkaline Phosphatase 61 Total Protein 7.1 Albumin 4.3 Globulin 2.8 Albumin/Globulin Ratio 1.5 Lipase 28 Urine Color YELLOW Urine Clarity CLEAR Urine pH 5.5 Ur Specific [place] >=1.030 H Urine Protein NEGATIVE Urine Glucose (UA) NEGATIVE Urine Ketones NEGATIVE Urine Occult Blood SMALL H Urine Nitrite NEGATIVE Urine Bilirubin NEGATIVE Urine Urobilinogen 0.2 (NORMAL) Ur Leukocyte Esterase NEGATIVE Urine RBC 0-5 Urine WBC 0-3 Ur Squamous Epith Cells FEW Squamous Urine Bacteria Rare Ur Microscopic Review INDICATED Urine Culture Comments NOT INDICATED - Rads (name of study) Pelvic ultrasound Relevant Findings:: Final report received, See rad report PD Medical Decision Making - ED course Complexity details: reviewed results, re-evaluated patient, considered differential, d/w patient ED course: 38-year-old female with a known right ovarian cyst presents with an increase in pain today acutely. Her ultrasound does not reveal any evidence of torsion. She was given Toradol and pain fully resolved. The cyst has decreased in size, possible early rupture? Abdomen is soft, nontender nondistended on serial exam. No acute laboratory abnormalities. Presume that the pain is secondary to her ovary, she is not tender near McBurney's point to suggest appendicitis. Patient counseled regarding signs and symptoms for which I believe and urgent re- evaluation would be necessary. Patient with good understanding of and agreement to plan and is comfortable going home at this time This document was made in part using voice recognition software. While efforts are made to proofread this document, sound alike and grammatical errors may occur. Departure - Departure Disposition: 01 Home, Self Care Clinical Impression: Ovarian cyst Qualifiers: Laterality: right Qualified Code(s): N83.201 - Unspecified ovarian cyst, right side Condition: Good Instructions: ED Cyst Ovarian Follow-Up: Esdras Horowitz MD [Primary Care Provider] - Comments: Your ovarian cyst has shrunk from 2 days ago, and is possible that the cyst has ruptured, causing your pain today. Your pain has since resolved. Please follow-up with your doctor for further care. Please return if you worsen. Forms: PCP List Discharge Date/Time: 09/19/23 18:51
[2023-09-19] MEDS: KETOROLAC 60 MG/2 ML VIAL IM STA (15:15)
[2023-09-19 15:37] LABS: BILIRUBIN,URINE NEGATIVE (NEGATIVE); GLUCOSE, URINE (UA) NEGATIVE (NEGATIVE); KETONES,URINE (UA) NEGATIVE (NEGATIVE); LEUKOCYTE ESTERASE, URINE NEGATIVE (NEGATIVE); NITRITE,URINE NEGATIVE (NEGATIVE); OCCULT BLOOD,URINE SMALL (NEGATIVE); PH,URINE 5.5 PH (5.0-7.5); PROTEIN,URINE NEGATIVE (NEGATIVE); UROBILINOGEN,URINE 0.2 (NORMAL) E.U./dL (NORMAL)
[2023-09-19 15:41] LABS: CLARITY,URINE CLEAR (CLEAR)
[2023-09-19 15:46] LABS: BACTERIA,URINE Rare /HPF (None Seen); RBC,URINE 0-5 /HPF (0-5); SQUAMOUS EPITHELIAL CELL,UR FEW Squamous (<= Few); WBC,URINE 0-3 /HPF (0-5)
[2023-09-19 17:59] VITALS: O2SAT 99
--- NOTE | 2023-09-19 18:15 | Ultrasound Report ---
PROCEDURE: Pelvic w/Doppler Complete INDICATIONS: pelvic pain, R TECHNIQUE: Real-time scanning was performed of the pelvic organs, with image documentation. Additional endovagi nal scanning was necessary due to incomplete visualization of the adnexal and endometrial structures by transabdominal scanning. Doppler interrogation was performed of the ovaries bilaterally. COMPARISON: 09/17/2023 FINDINGS: Uterus: Uterus is anteverted and normal in size at 10.4 x 4.9 x 6.4 cm. The myometrium is homogeneo us. The endometrium measures 6 mm in combined thickness. IUD is in place. Ovaries: The right ovary measures 5.5 x 3.3 x 3.7 cm, with a calculated ovarian volume of 35 cc. Th e left ovary measures 3.1 x 2.1 x 2.2 cm, with a calculated ovarian volume of 7 cc. Appropriate bloo d flow to the ovaries with Doppler interrogation. Less than 12 follicles can be seen in each ovary. No adnexal masses are seen. No cystic lesions measuring greater than 3 cm. Previously described sim ple right ovarian cyst has decreased in size now measuring up to 3.4 cm in maximum dimension. Other: No pathologic free abdominal or pelvic fluid. IMPRESSION: Pelvic ultrasound without acute sonographic abnormalities. No evidence for ovarian torsion. Interval decrease in size of simple right ovarian cyst. Reviewed by: Luis Lancaster MD on 09/19/2023 6:14 PM PDT Approved by: Luis Lancaster MD on 09/19/2023 6:14 PM PDT Station ID: [id number]
[2023-09-19 18:56] VITALS: BP 147/90
== END 2023-09-19 18:51 | disposition home or self-care (01) ==
LOC: ED 12:41
DX: N83.201 Unspecified ovarian cyst, right side (principal); E03.9 Hypothyroidism, unspecified; Z79.899 Other long term (current) drug therapy; Z97.5 Presence of (intrauterine) contraceptive device
CPT/HCPCS: 36415; 80053; 81001; 81003; 83690; 85025; 87086; 93975; 96372; 99284